=== PATIENT | female | born 1955 | race Caucasian/White ===

== ENCOUNTER → 2021-01-17 13:59 | Outpatient (CLI) | payer MEDICARE, SELFPAY ==
[2021-01-17] MEDS: COVID-19 VACC #1, MRNA(MOD) 100 MCG/0.5 ML VIAL IM (14:05)
== END ==
PROVIDERS: Visit Provider Internal Medicine
DX: Z23 Encounter for immunization (principal)
CPT/HCPCS: 0011A; 91301

== ENCOUNTER 2022-06-21 06:53 | Emergency (ER) | payer MEDICARE, SELFPAY ==
[2022-06-21] VITALS (31 sets, daily range): BP systolic 147–178; BP diastolic 64–88; PULSE 80–100; RESP 16–18; TEMP 36.7; O2SAT 92–99; BMI 34.7
--- NOTE | 2022-06-21 07:21 | ED.GENADULT ---
HPI - General Adult General Chief complaint: Urogenital-Female Stated complaint: cant urinate 3 days Time Seen by Provider: 06/21/22 07:05 Source: patient and family Mode of arrival: Ambulatory History of Present Illness HPI narrative: 67-year-old woman with history complicated by colon cancer with colostomy, kidney cancer with left nephrectomy who presents saying that she has not voided all in the last 2-3 days. She is typically completely incontinent of urine after complications from her colon surgery and has noted that her pad/underwear have not been wet at all. She notes that she has gained about 5 lb in the last few days and is noting some puffiness around her face some mild swelling in her legs but no complaints of chest pain, orthopnea or dyspnea. She has no abdominal pain complaints. She notes that she has not recently had any chest pain, cough, fevers, palpitations. Her colostomy output has been at its baseline. She has not been vomiting. She is not complaining of myalgias or cramping and has no acute neurologic concerns. Related Data Home Medications Medication Instructions Recorded Confirmed escitalopram oxalate 20 mg tablet 20 mg PO DAILY 06/21/22 06/21/22 ezetimibe 10 mg tablet 10 mg PO BEDTIME 06/21/22 06/21/22 fenofibrate nanocrystallized 145 145 mg PO DAILY 06/21/22 06/21/22 mg tablet gabapentin 300 mg capsule 300 mg PO BID 06/21/22 06/21/22 hydrochlorothiazide 50 mg tablet 50 mg PO DAILY 06/21/22 06/21/22 insulin human U-100 NPH-regulr See Rx Instructions .Route .COMPLEX 06/21/22 06/21/22 70-30 mix 100 unit/mL subcutaneous susp (Humulin 70/30 U-100 Insulin) metformin 1,000 mg tablet 1,000 mg PO BID 06/21/22 06/21/22 pravastatin 40 mg tablet 40 mg PO BEDTIME 06/21/22 06/21/22 Allergies Allergy/AdvReac Type Severity Reaction Status Date / Time Opioids - Morphine Analogues AdvReac Hallucinati Verified 06/21/22 07:10 ng Review of Systems Review of Systems Narrative: Remainder of complete review of systems is otherwise unremarkable except for that included in the HPI. Patient History Medical History (Updated 06/21/22 @ 17:33 by Michelle Lofton MD) History of colon cancer History of renal cell cancer Social History Smoking Status: Never smoker Smoking Status: Never smoker alcohol intake frequency: 0-2 drinks per day Substance Use Type: does not use Exam Initial Vital Signs Initial Vital Signs: Vital Signs Temperature 98.0 F 06/21/22 07:00 Pulse Rate 100 H 06/21/22 07:00 Respiratory Rate 17 06/21/22 07:00 Blood Pressure 178/88 H 06/21/22 07:00 Pulse Oximetry 97 06/21/22 07:00 Oxygen Delivery Method 06/21/22 07:00 General: Fatigue but otherwise Healthy appearing, in no acute distress. Able to give a complete and coherent history. Well-nourished well-developed HEENT: Moist mucous membranes, normal sclera with reactive pupils, Neck: No JVD, supple Respiratory: Lungs are clear to auscultation, no wheezing no rales no rhonchi. Full and symmetrical air movement Cardiac: Regular rate and rhythm no murmurs no bruits Abdomen: Soft, nontender, good bowel tones, mild right-sided flank pain Skin: Warm and dry, no rashes Neurologic: Grossly neurologically intact with no obvious asymmetries or abnormalities Extremities: No trauma, well perfused, 1+ bilateral lower extremity edema Psych: Cooperative, appropriate insight and affect Bedside bladder scan shows minimal urine in the bladder Course Orders Ordered: ED Orders 06/21/22 10:22 CT abdomen pelvis wo con Stat Discontinued Medications Sodium Chloride (Normal Saline 0.9%) 1,000 mls @ 1,000 mls/hr IV BOLUS ONE Stop: 06/21/22 11:21 Last Infusion: 06/21/22 14:07 Dose: 0 mls/hr Documented By: Admin: 06/21/22 10:55 Dose: 1,000 mls/hr Documented By: JESSICA Insulin Human Regular (Insulin Regular 100 Unit/Ml 3 Ml Vial) 10 unit SUBCUT NOW ONE Stop: 06/21/22 14:01 Last Admin: 06/21/22 14:26 Dose: 10 unit Documented By: KENNY Co-signed By: AT Vital Signs Vital signs: Vital Signs - 8 hr 06/21/22 10:00 06/21/22 10:01 06/21/22 10:01 Pulse Rate 80 82 Respiratory Rate Blood Pressure 147/65 H Pulse Oximetry 95 97 Oxygen Delivery Method 06/21/22 10:30 06/21/22 10:31 06/21/22 10:31 Pulse Rate 85 90 Respiratory Rate Blood Pressure 161/72 H Pulse Oximetry 97 97 Oxygen Delivery Method 06/21/22 10:59 06/21/22 10:59 06/21/22 11:00 Pulse Rate 83 Respiratory Rate Blood Pressure 165/70 H 148/65 H Pulse Oximetry 98 Oxygen Delivery Method 06/21/22 11:00 06/21/22 11:30 06/21/22 11:31 Pulse Rate 84 84 Respiratory Rate Blood Pressure 155/69 H Pulse Oximetry 98 98 Oxygen Delivery Method Room Air 06/21/22 11:31 06/21/22 12:00 06/21/22 12:01 Pulse Rate 84 85 85 Respiratory Rate Blood Pressure Pulse Oximetry 97 99 99 Oxygen Delivery Method Room Air 06/21/22 12:01 06/21/22 12:30 06/21/22 13:00 Pulse Rate 80 80 Respiratory Rate Blood Pressure 148/64 H Pulse Oximetry 96 96 Oxygen Delivery Method 06/21/22 13:15 06/21/22 13:15 06/21/22 13:30 Pulse Rate 84 83 Respiratory Rate Blood Pressure 169/74 H Pulse Oximetry 98 97 Oxygen Delivery Method 06/21/22 13:50 06/21/22 14:00 06/21/22 14:30 Pulse Rate 82 82 Respiratory Rate 16 Blood Pressure Pulse Oximetry 97 98 Oxygen Delivery Method 06/21/22 15:00 06/21/22 15:14 06/21/22 15:14 Pulse Rate 80 85 Respiratory Rate Blood Pressure 163/71 H Pulse Oximetry 98 99 Oxygen Delivery Method 06/21/22 15:30 06/21/22 16:00 06/21/22 16:30 Pulse Rate 84 81 81 Respiratory Rate 16 Blood Pressure Pulse Oximetry 98 98 98 Oxygen Delivery Method Room Air Room Air Medical Decision Making Lab Data Result diagrams: 06/21/22 08:08 06/21/22 08:08 Labs: Lab Results 06/21/22 06/21/22 06/21/22 Range/Units 08:08 08:08 08:08 WBC 9.0 (4.5-11.0) X10^3/uL RBC 3.85 L (4.0-5.2) X10^6/uL Hgb 11.1 L (12.0-16.0) g/dL Hct 32.9 L (36-46) % MCV 85.4 (80-100) fL MCH 28.9 (26-34) PG MCHC 33.8 (30-36) % RDW 14.5 (11.6-14.8) % Plt Count 323 (150-400) X10^3/uL Neut % (Auto) 70.9 (50-75) % Lymph % (Auto) 15.9 L (25-40) % [place] % (Auto) 10.0 (3-14) % Eos % (Auto) 2.4 (2-4) % Baso % (Auto) 0.8 (0-2) % Neut # (Auto) 6400 (9636-6353) /uL Lymph # (Auto) 1400 (3388-2771) /uL [place] # (Auto) 900 (0-900) /uL Eos # (Auto) 200 (0-450) /uL Baso # (Auto) 100 (0-100) /uL Sodium 128 L (137-145) mmol/L Potassium 4.3 (3.4-5.1) mmol/L Chloride 95 L (98-107) mmol/L Carbon Dioxide 22 (22-32) mmol/L BUN 62 H (7-17) mg/dL Creatinine 5.80 H (0.52-1.04) mg/dL Estimated GFR 8 L (>60) mL/min BUN/Creatinine Ratio 10.7 (6-22) Glucose 309 H (80-110) mg/dL Lactate (0.7-2.1) mmol/L Calcium 11.1 H (8.4-10.2) mg/dL Magnesium 2.0 (1.6-2.3) mg/dL Total Bilirubin 0.4 (0.2-1.3) mg/dL AST 21 (14-36) IU/L ALT 16 (<35) IU/L Alkaline Phosphatase 50 (38-126) U/L Troponin I 0.024 (0.01-0.034) ng/mL Total Protein 6.7 (6.3-8.2) g/dL Albumin 3.7 (3.5-5.0) g/dL Globulin 3.0 (1.7-4.1) g/dL Albumin/Globulin Ratio 1.2 (1.0-2.8) Procalcitonin 0.75 H (<0.5) ng/mL SARS-CoV-2 (PCR) (Negative) 06/21/22 06/21/22 06/21/22 Range/Units 08:08 08:20 11:45 WBC (4.5-11.0) X10^3/uL RBC (4.0-5.2) X10^6/uL Hgb (12.0-16.0) g/dL Hct (36-46) % MCV (80-100) fL MCH (26-34) PG MCHC (30-36) % RDW (11.6-14.8) % Plt Count (150-400) X10^3/uL Neut % (Auto) (50-75) % Lymph % (Auto) (25-40) % [place] % (Auto) (3-14) % Eos % (Auto) (2-4) % Baso % (Auto) (0-2) % Neut # (Auto) (4670-8321) /uL Lymph # (Auto) (8091-2571) /uL [place] # (Auto) (0-900) /uL Eos # (Auto) (0-450) /uL Baso # (Auto) (0-100) /uL Sodium (137-145) mmol/L Potassium (3.4-5.1) mmol/L Chloride (98-107) mmol/L Carbon Dioxide (22-32) mmol/L BUN (7-17) mg/dL Creatinine (0.52-1.04) mg/dL Estimated GFR (>60) mL/min BUN/Creatinine Ratio (6-22) Glucose (80-110) mg/dL Lactate 2.5 H 2.3 H (0.7-2.1) mmol/L Calcium (8.4-10.2) mg/dL Magnesium (1.6-2.3) mg/dL Total Bilirubin (0.2-1.3) mg/dL AST (14-36) IU/L ALT (<35) IU/L Alkaline Phosphatase (38-126) U/L Troponin I (0.01-0.034) ng/mL Total Protein (6.3-8.2) g/dL Albumin (3.5-5.0) g/dL Globulin (1.7-4.1) g/dL Albumin/Globulin Ratio (1.0-2.8) Procalcitonin (<0.5) ng/mL SARS-CoV-2 (PCR) Negative (Negative) Point of Care Testing Glucose POC 362 Point of care testing: Point of Care Testing Glucose POC 362 Imaging Data Chest x-ray: Radiologist's Impression: FINDINGS:? ? Surgical changes and devices:? None.? ? Lungs and pleura:? Lungs are clear.? No pleural effusions or pneumothorax.? ? Mediastinum:? Mediastinal contours appear normal.? Heart size is normal.? ? Bones and chest wall:? No suspicious bony lesions.? Overlying soft tissues appear unremarkable.? ? IMPRESSION:? No acute cardiopulmonary abnormality. ? ? ? Dictated by: Deon Pascal M.D. on 06/21/2022 at 8:11 ? ? ECG Data Interpretation: Normal sinus rhythm Normal intervals, normal axis No widened QRS or peaked T-waves No acute ischemic changes MDM Narrative Medical decision making narrative: 67-year-old woman with known stage IIIB chronic kidney disease and no urine output for the last 2-3 days. Acute renal failure with a creatinine of 5.8 potassium of 4.3 chloride of 95 carbon dioxide 22 BUN of 62. Calcium is slightly elevated at 11.1. She does not have signs or symptoms of infection, hypotension or sepsis. Bladder scan indicates an empty bladder, Chiang catheter is placed and no urine has returned at all. 1L NS is given. CT scan of the abdomen without contrast is done with no acute extrinsic obstructive findings, stones or hydronephrosis of her solitary right kidney. 4pm Discussed with [facility]. Discussed with Nephrology, Dr Valdez . Will admit to hospitalist service. Dr Mitchell. Discharge Plan Departure Patient Disposition: [facility] Clinical Impression: Acute renal failure, Acquired solitary kidney Prescriptions: No Action pravastatin 40 mg tablet 40 mg PO BEDTIME hydrochlorothiazide 50 mg tablet 50 mg PO DAILY Humulin 70/30 U-100 Insulin 100 unit/mL (70-30) suspension See Rx Instructions .ROUTE .COMPLEX Rx Instructions: 118 units in the morning, 132 units at nightime metformin 1,000 mg tablet 1,000 mg PO BID gabapentin 300 mg capsule 300 mg PO BID escitalopram oxalate 20 mg tablet 20 mg PO DAILY ezetimibe 10 mg tablet 10 mg PO BEDTIME fenofibrate nanocrystallized 145 mg tablet 145 mg PO DAILY
--- NOTE | 2022-06-21 07:33 | DI.RAD.S_ITS ---
PROCEDURE: XR CHEST 1V INDICATIONS: new acute renal failure TECHNIQUE: One view of the chest was acquired. COMPARISON: None. FINDINGS: Surgical changes and devices: None. Lungs and pleura: Lungs are clear. No pleural effusions or pneumothorax. Mediastinum: Mediastinal contours appear normal. Heart size is normal. Bones and chest wall: No suspicious bony lesions. Overlying soft tissues appear unremarkable. IMPRESSION: No acute cardiopulmonary abnormality. Dictated by: Deon Pascal M.D. on 06/21/2022 at 8:11 Approved by: Deon Pascal M.D. on 06/21/2022 at 8:12
[2022-06-21 08:17] LABS: Add Manual Diff / Slide Review NO; Basophils Absolute Auto 100 /uL (0-100); Basophils Percent Auto 0.8 % (0-2); Eosinophils Absolute Auto 200 /uL (0-450); Eosinophils Percent Auto 2.4 % (2-4); Hematocrit 32.9 % (36-46); Hemoglobin 11.1 g/dL (12.0-16.0); Lymphocytes Absolute Auto 1400 /uL (1100-4500); Lymphocytes Percent Auto 15.9 % (25-40); Mean Corpuscular HGB Conc 33.8 % (30-36); Mean Corpuscular Hemoglobin 28.9 PG (26-34); Mean Corpuscular Volume 85.4 fL (80-100); Monocytes Absolute Auto 900 /uL (0-900); Neutrophils Absolute Auto 6400 /uL (1500-7000); Neutrophils Percent Auto 70.9 % (50-75); Platelet Count 323 X10^3/uL (150-400); Red Blood Cell Count 3.85 X10^6/uL (4.0-5.2); Red Cell Distribution Width 14.5 % (11.6-14.8)
[2022-06-21 08:27] LABS: Lactate (Lactic Acid) 2.5 mmol/L (0.7-2.1)
[2022-06-21 08:37] LABS: COVID19 -Nasal RAPID Negative (Negative)
[2022-06-21 08:38] LABS: Troponin I 0.024 ng/mL (0.01-0.034)
[2022-06-21 08:42] LABS: Procalcitonin 0.75 ng/mL (<0.5)
--- NOTE | 2022-06-21 08:43 | PC.NURSE ---
no urine output from sullivan cath insertion. Dr. Lofton aware.
[2022-06-21 09:16] LABS: Alanine Aminotransferase 16 IU/L (<35); Albumin 3.7 g/dL (3.5-5.0); Albumin Globulin Ratio 1.2 (1.0-2.8); Alkaline Phosphatase 50 U/L (38-126); Aspartate Aminotransferase 21 IU/L (14-36); BUN Creatinine Ratio 10.7 (6-22); Bilirubin Total 0.4 mg/dL (0.2-1.3); Blood Urea Nitrogen 62 mg/dL (7-17); Calcium 11.1 mg/dL (8.4-10.2); Carbon Dioxide 22 mmol/L (22-32); Chloride 95 mmol/L (98-107); Estimated Glomerular Filt Rate 8 mL/min (>60); Glucose 309 mg/dL (80-110); HEMOLYSIS < 15 (0-50); Potassium 4.3 mmol/L (3.4-5.1); Sodium 128 mmol/L (137-145); Total Protein 6.7 g/dL (6.3-8.2)
[2022-06-21 10:13] LABS: Reflexed Lactate in 2 Hours Y
--- NOTE | 2022-06-21 10:22 | DI.CT.S_ITS ---
PROCEDURE: CT ABDOMEN PELVIS WO CON INDICATIONS: h/o colon ca, renal ca(L nephrectomy), new Acute renal failu TECHNIQUE: Noncontrast 5 mm thick sections acquired from the diaphragms to the symphysis. 5 mm coronal and sagittal reformats were then performed. For radiation dose reduction, the following was used: automated exposure control, adjustment of mA and/or kV according to patient size. COMPARISON: [facility], CR, XR CHEST 1V, 06/21/2022, 7:48. FINDINGS: Image quality: Excellent. ABDOMEN: Lung bases: Lung bases are clear. Heart size is normal. Solid organs: Liver is normal in size. Gallbladder has been removed. Pancreas is normal in contours. Spleen is normal in size. No adrenal nodules. The left kidney has been removed. The right kidney demonstrates apparent water density cysts. No right-sided hydronephrosis is seen. No right-sided kidney stones. Peritoneum and bowel: A lap band can be seen. There is a left lower quadrant colostomy. Unenhanced bowel loops demonstrate normal wall thickness and caliber. No free fluid or air. Nodes and vessels: No retroperitoneal or mesenteric adenopathy by size criteria. Aorta and inferior vena cava are normal in caliber. Atherosclerotic calcification is noted. Miscellaneous: Moderate to prominent inflammatory change can be seen involving the anterior aspect of the anterior abdominal wall. A mild periumbilical hernia is seen, containing fat. PELVIS: Genitourinary: A Chiang catheter is seen, which decompresses the bladder. No adnexal masses are seen. Miscellaneous: No inguinal hernias or adenopathy. Bones: No suspicious bony lesions. No vertebral body compression fractures. This patient has transitional lumbar anatomy. For the purposes of this examination, the level with the last pair of ribs is considered to be T12. By this numbering scheme, the L5 level is transitional and is highly sacralized. Focal L4-L5 degenerative change is seen. IMPRESSION: A cause of acute renal failure is not identified. No right-sided hydronephrosis is seen. Inflammatory change can be seen involving the anterior abdominal wall. Incidental note is made of: Cholecystectomy Lap band Status post left nephrectomy Right renal cysts are seen. Fat containing periumbilical hernia Left lower quadrant colostomy Chiang catheter Focal L4-L5 degenerative change Transitional lumbar anatomy, with a highly sacralized L5 level Dictated by: Nazario Abraham M.D. on 06/21/2022 at 9:51 Approved by: Nazario Abraham M.D. on 06/21/2022 at 9:56
[2022-06-21] MEDS: SODIUM CHLORIDE 0.9% 1,000 ML 1000 ML IV (10:55)
[2022-06-21 12:15] LABS: Lactate 2HR (Lactic Acid Rflx) 2.3 mmol/L (0.7-2.1)
[2022-06-21] MEDS: INSULIN REGULAR 100 UNIT/ML 3 ML VIAL 10 UNIT SUBCUT (14:26)
--- NOTE | 2022-06-21 18:14 | PC.NURSE ---
Report called to Joel PATEL for RM 267 at [facility].
== END 2022-06-21 18:00 | disposition short-term general hospital (02) ==
PROVIDERS: Emergency Provider Emergency Medicine
DX: N17.9 Acute kidney failure, unspecified (principal); R60.9 Edema, unspecified; Z20.822 Contact with and (suspected) exposure to COVID-19; Z20.5 Contact with and (suspected) exposure to viral hepatitis
CPT/HCPCS: 36415; 71045; 74176; 80053; 82962; 83605; 83735; 84145; 84484; 85025; 87635; 93005; 96360; 96361; 96372; 99284; C9803

== ENCOUNTER → 2022-07-14 11:10 | Outpatient (CLI) | payer MEDICARE, SELFPAY ==
[2022-07-14 12:01] LABS: Add Manual Diff / Slide Review NO; Basophils Absolute Auto 100 /uL (0-100); Basophils Percent Auto 1.2 % (0-2); Eosinophils Absolute Auto 200 /uL (0-450); Eosinophils Percent Auto 3.7 % (2-4); Hematocrit 34.9 % (36-46); Hemoglobin 11.4 g/dL (12.0-16.0); Lymphocytes Absolute Auto 1200 /uL (1100-4500); Lymphocytes Percent Auto 17.7 % (25-40); Mean Corpuscular HGB Conc 32.7 % (30-36); Mean Corpuscular Hemoglobin 28.8 PG (26-34); Mean Corpuscular Volume 87.9 fL (80-100); Monocytes Absolute Auto 600 /uL (0-900); Monocytes Percent Auto 8.3 % (3-14); Neutrophils Absolute Auto 4700 /uL (1500-7000); Neutrophils Percent Auto 69.1 % (50-75); Platelet Count 368 X10^3/uL (150-400); Red Blood Cell Count 3.97 X10^6/uL (4.0-5.2); Red Cell Distribution Width 14.6 % (11.6-14.8); White Blood Cell Count 6.7 X10^3/uL (4.5-11.0)
[2022-07-14 12:46] LABS: Alanine Aminotransferase 22 IU/L (<35); Albumin 3.8 g/dL (3.5-5.0); Albumin Globulin Ratio 1.3 (1.0-2.8); Alkaline Phosphatase 74 U/L (38-126); Aspartate Aminotransferase 21 IU/L (14-36); BUN Creatinine Ratio 15.3 (6-22); Bilirubin Total 0.4 mg/dL (0.2-1.3); Blood Urea Nitrogen 25 mg/dL (7-17); Calcium 9.8 mg/dL (8.4-10.2); Carbon Dioxide 29 mmol/L (22-32); Chloride 107 mmol/L (98-107); Estimated Glomerular Filt Rate 35 mL/min (>60); Globulin 2.9 g/dL (1.7-4.1); Glucose 296 mg/dL (80-110); HEMOLYSIS < 15 (0-50); Potassium 4.7 mmol/L (3.4-5.1); Sodium 140 mmol/L (137-145); Total Protein 6.7 g/dL (6.3-8.2)
== END ==
PROVIDERS: PCP Internal Medicine; Referring Provider Specialist; Visit Provider Specialist
DX: N18.31 Chronic kidney disease, stage 3a (principal)
CPT/HCPCS: 36415; 80053; 85025

== ENCOUNTER → 2022-07-21 10:51 | Outpatient (CLI) | payer MEDICARE, SELFPAY ==
[2022-07-21 12:01] LABS: Add Manual Diff / Slide Review NO; Basophils Absolute Auto 100 /uL (0-100); Basophils Percent Auto 1.3 % (0-2); Eosinophils Absolute Auto 200 /uL (0-450); Eosinophils Percent Auto 3.5 % (2-4); Hematocrit 34.6 % (36-46); Hemoglobin 11.7 g/dL (12.0-16.0); Lymphocytes Absolute Auto 1700 /uL (1100-4500); Lymphocytes Percent Auto 25.8 % (25-40); Mean Corpuscular HGB Conc 33.9 % (30-36); Mean Corpuscular Hemoglobin 29.6 PG (26-34); Mean Corpuscular Volume 87.4 fL (80-100); Monocytes Absolute Auto 600 /uL (0-900); Monocytes Percent Auto 9.9 % (3-14); Neutrophils Absolute Auto 3900 /uL (1500-7000); Neutrophils Percent Auto 59.5 % (50-75); Platelet Count 363 X10^3/uL (150-400); Red Blood Cell Count 3.96 X10^6/uL (4.0-5.2); Red Cell Distribution Width 14.7 % (11.6-14.8); White Blood Cell Count 6.6 X10^3/uL (4.5-11.0)
[2022-07-21 12:44] LABS: Alanine Aminotransferase 26 IU/L (<35); Albumin 3.7 g/dL (3.5-5.0); Albumin Globulin Ratio 1.3 (1.0-2.8); Alkaline Phosphatase 78 U/L (38-126); Aspartate Aminotransferase 29 IU/L (14-36); BUN Creatinine Ratio 15.1 (6-22); Bilirubin Total 0.3 mg/dL (0.2-1.3); Blood Urea Nitrogen 19 mg/dL (7-17); Calcium 9.3 mg/dL (8.4-10.2); Carbon Dioxide 24 mmol/L (22-32); Chloride 104 mmol/L (98-107); Estimated Glomerular Filt Rate 47 mL/min (>60); Globulin 2.8 g/dL (1.7-4.1); Glucose 253 mg/dL (80-110); HEMOLYSIS < 15 (0-50); Phosphorous 3.9 mg/dL (2.8-4.1); Potassium 4.6 mmol/L (3.4-5.1); Sodium 139 mmol/L (137-145); Total Protein 6.5 g/dL (6.3-8.2)
[2022-07-21 13:16] LABS: Appearance Urine UA CLEAR; Bilirubin Urine UA NEGATIVE (NEGATIVE); Color Urine UA YELLOW; Glucose Urine UA 1+ g/dL (Negative); Ketones Urine UA NEGATIVE (NEGATIVE); Leukocyte Esterase Urine UA NEGATIVE (NEGATIVE); Nitrite Urine UA POSITIVE (Negative); Occult Blood Urine UA NEGATIVE (Negative); Protein Urine UA NEGATIVE (Negative); Specific Gravity Urine UA 1.015 (1.000-1.035); Urobilinogen Urine UA 0.2 E.U./dL (0.2)
[2022-07-21 13:20] LABS: pH Urine UA 5.5 (4.5-8.0)
[2022-07-21 13:22] LABS: RBC Urine None Seen (0-5/HPF); Squamous Epithelial Cell Urine 1-5 /HPF (0-5/HPF); WBC Urine 1-5/HPF (0-5/HPF)
[2022-07-21 13:23] LABS: Bacteria Urine Many (>30); Culture Indicated Urine Specimen Cultured
== END ==
PROVIDERS: PCP Internal Medicine; Referring Provider Specialist; Visit Provider Specialist
DX: N17.9 Acute kidney failure, unspecified (principal); N18.32 Chronic kidney disease, stage 3b
CPT/HCPCS: 80053; 81001; 84100; 85025; 87077; 87086; 87186

== ENCOUNTER → 2022-07-28 10:46 | Outpatient (CLI) | payer MEDICARE, SELFPAY ==
[2022-07-28 12:19] LABS: Appearance Urine UA SL CLOUDY; Bilirubin Urine UA NEGATIVE (NEGATIVE); Color Urine UA YELLOW; Glucose Urine UA 2+ g/dL (Negative); Ketones Urine UA NEGATIVE (NEGATIVE); Leukocyte Esterase Urine UA 1+ (NEGATIVE); Nitrite Urine UA NEGATIVE (Negative); Occult Blood Urine UA NEGATIVE (Negative); Protein Urine UA NEGATIVE (Negative); Specific Gravity Urine UA 1.015 (1.000-1.035); Urobilinogen Urine UA 0.2 E.U./dL (0.2)
[2022-07-28 12:21] LABS: Add Manual Diff / Slide Review NO; Basophils Absolute Auto 100 /uL (0-100); Basophils Percent Auto 0.9 % (0-2); Eosinophils Absolute Auto 300 /uL (0-450); Eosinophils Percent Auto 3.8 % (2-4); Hematocrit 35.6 % (36-46); Hemoglobin 11.8 g/dL (12.0-16.0); Lymphocytes Absolute Auto 1700 /uL (1100-4500); Lymphocytes Percent Auto 22.8 % (25-40); Mean Corpuscular HGB Conc 33.1 % (30-36); Mean Corpuscular Hemoglobin 28.7 PG (26-34); Mean Corpuscular Volume 86.7 fL (80-100); Monocytes Absolute Auto 600 /uL (0-900); Monocytes Percent Auto 8.6 % (3-14); Neutrophils Absolute Auto 4800 /uL (1500-7000); Neutrophils Percent Auto 63.9 % (50-75); Platelet Count 283 X10^3/uL (150-400); White Blood Cell Count 7.5 X10^3/uL (4.5-11.0)
[2022-07-28 12:40] LABS: Bacteria Urine Many (>30); Culture Indicated Urine Specimen Cultured; RBC Urine None Seen (0-5/HPF); WBC Urine 10-30/HPF (0-5/HPF)
[2022-07-28 13:12] LABS: Alanine Aminotransferase 26 IU/L (<35); Albumin 3.9 g/dL (3.5-5.0); Albumin Globulin Ratio 1.2 (1.0-2.8); Alkaline Phosphatase 90 U/L (38-126); Aspartate Aminotransferase 23 IU/L (14-36); BUN Creatinine Ratio 13.8 (6-22); Bilirubin Total 0.3 mg/dL (0.2-1.3); Blood Urea Nitrogen 18 mg/dL (7-17); Calcium 9.6 mg/dL (8.4-10.2); Carbon Dioxide 22 mmol/L (22-32); Chloride 106 mmol/L (98-107); Estimated Glomerular Filt Rate 45 mL/min (>60); Globulin 3.2 g/dL (1.7-4.1); Glucose 209 mg/dL (80-110); HEMOLYSIS < 15 (0-50); Phosphorous 3.2 mg/dL (2.8-4.1); Potassium 3.8 mmol/L (3.4-5.1); Sodium 137 mmol/L (137-145); Total Protein 7.1 g/dL (6.3-8.2)
== END ==
PROVIDERS: PCP Internal Medicine; Referring Provider Specialist; Visit Provider Specialist
DX: N17.9 Acute kidney failure, unspecified (principal); N18.32 Chronic kidney disease, stage 3b
CPT/HCPCS: 36415; 80053; 81001; 84100; 85025; 87086; 87186

== ENCOUNTER → 2022-08-04 10:36 | Outpatient (CLI) | payer MEDICARE, SELFPAY ==
[2022-08-04 12:35] LABS: Add Manual Diff / Slide Review NO; Basophils Absolute Auto 100 /uL (0-100); Basophils Percent Auto 1.4 % (0-2); Eosinophils Absolute Auto 200 /uL (0-450); Eosinophils Percent Auto 2.7 % (2-4); Hematocrit 37.3 % (36-46); Hemoglobin 12.3 g/dL (12.0-16.0); Lymphocytes Absolute Auto 2000 /uL (1100-4500); Lymphocytes Percent Auto 22.6 % (25-40); Mean Corpuscular HGB Conc 33.1 % (30-36); Mean Corpuscular Hemoglobin 28.7 PG (26-34); Mean Corpuscular Volume 86.7 fL (80-100); Monocytes Absolute Auto 700 /uL (0-900); Monocytes Percent Auto 7.9 % (3-14); Neutrophils Absolute Auto 5800 /uL (1500-7000); Neutrophils Percent Auto 65.4 % (50-75); Platelet Count 333 X10^3/uL (150-400); Red Cell Distribution Width 14.7 % (11.6-14.8); White Blood Cell Count 8.9 X10^3/uL (4.5-11.0)
[2022-08-04 12:59] LABS: Appearance Urine UA CLEAR; Bilirubin Urine UA NEGATIVE (NEGATIVE); Color Urine UA YELLOW; Glucose Urine UA 2+ g/dL (Negative); Ketones Urine UA NEGATIVE (NEGATIVE); Leukocyte Esterase Urine UA NEGATIVE (NEGATIVE); Nitrite Urine UA NEGATIVE (Negative); Occult Blood Urine UA TRACE-INTACT (Negative); Protein Urine UA NEGATIVE (Negative); Specific Gravity Urine UA 1.015 (1.000-1.035); Urobilinogen Urine UA 0.2 E.U./dL (0.2)
[2022-08-04 13:00] LABS: pH Urine UA 5.5 (4.5-8.0)
[2022-08-04 13:04] LABS: Bacteria Urine None Seen; Culture Indicated Urine Cult Not Indicated; RBC Urine 1-5/HPF (0-5/HPF); WBC Urine None Seen (0-5/HPF)
[2022-08-04 13:58] LABS: Alanine Aminotransferase 29 IU/L (<35); Albumin 4.1 g/dL (3.5-5.0); Albumin Globulin Ratio 1.4 (1.0-2.8); Alkaline Phosphatase 82 U/L (38-126); Aspartate Aminotransferase 31 IU/L (14-36); BUN Creatinine Ratio 17.4 (6-22); Bilirubin Total 0.3 mg/dL (0.2-1.3); Blood Urea Nitrogen 20 mg/dL (7-17); Calcium 9.7 mg/dL (8.4-10.2); Carbon Dioxide 23 mmol/L (22-32); Chloride 102 mmol/L (98-107); Estimated Glomerular Filt Rate 53 mL/min (>60); Glucose 196 mg/dL (80-110); HEMOLYSIS < 15 (0-50); Phosphorous 3.4 mg/dL (2.8-4.1); Potassium 4.3 mmol/L (3.4-5.1); Sodium 139 mmol/L (137-145); Total Protein 7.1 g/dL (6.3-8.2)
== END ==
PROVIDERS: PCP Internal Medicine; Referring Provider Specialist; Visit Provider Specialist
DX: N18.31 Chronic kidney disease, stage 3a (principal); N17.9 Acute kidney failure, unspecified; N18.32 Chronic kidney disease, stage 3b
CPT/HCPCS: 36415; 80053; 81001; 84100; 85025

== ENCOUNTER → 2022-08-18 08:42 | Outpatient (CLI) | payer MEDICARE, SELFPAY ==
[2022-08-18 09:27] LABS: Add Manual Diff / Slide Review NO; Basophils Absolute Auto 100 /uL (0-100); Basophils Percent Auto 0.7 % (0-2); Eosinophils Absolute Auto 300 /uL (0-450); Eosinophils Percent Auto 3.5 % (2-4); Hematocrit 38.7 % (36-46); Hemoglobin 13.1 g/dL (12.0-16.0); Lymphocytes Absolute Auto 2000 /uL (1100-4500); Mean Corpuscular HGB Conc 33.9 % (30-36); Mean Corpuscular Hemoglobin 29.4 PG (26-34); Mean Corpuscular Volume 86.5 fL (80-100); Monocytes Absolute Auto 700 /uL (0-900); Monocytes Percent Auto 8.3 % (3-14); Neutrophils Absolute Auto 5300 /uL (1500-7000); Neutrophils Percent Auto 63.5 % (50-75); Platelet Count 326 X10^3/uL (150-400); Red Blood Cell Count 4.47 X10^6/uL (4.0-5.2); Red Cell Distribution Width 14.3 % (11.6-14.8); White Blood Cell Count 8.3 X10^3/uL (4.5-11.0)
[2022-08-18 09:29] LABS: Appearance Urine UA CLEAR; Bilirubin Urine UA NEGATIVE (NEGATIVE); Glucose Urine UA NEGATIVE (Negative); Ketones Urine UA NEGATIVE (NEGATIVE); Leukocyte Esterase Urine UA TRACE (NEGATIVE); Nitrite Urine UA NEGATIVE (Negative); Occult Blood Urine UA NEGATIVE (Negative); Protein Urine UA NEGATIVE (Negative); Specific Gravity Urine UA <=1.005 (1.000-1.035); Urobilinogen Urine UA 0.2 E.U./dL (0.2)
[2022-08-18 09:43] LABS: pH Urine UA 5.5 (4.5-8.0)
[2022-08-18 09:44] LABS: Bacteria Urine Moderate (10-30); Color Urine UA Straw; Culture Indicated Urine Specimen Cultured; RBC Urine None Seen (0-5/HPF); Squamous Epithelial Cell Urine 0-1 /HPF (0-5/HPF); WBC Urine 0-1/HPF (0-5/HPF)
[2022-08-18 10:10] LABS: Alanine Aminotransferase 30 IU/L (<35); Albumin Globulin Ratio 1.2 (1.0-2.8); Alkaline Phosphatase 93 U/L (38-126); Aspartate Aminotransferase 31 IU/L (14-36); BUN Creatinine Ratio 20.4 (6-22); Bilirubin Total 0.4 mg/dL (0.2-1.3); Blood Urea Nitrogen 22 mg/dL (7-17); Calcium 9.5 mg/dL (8.4-10.2); Carbon Dioxide 19 mmol/L (22-32); Chloride 105 mmol/L (98-107); Estimated Glomerular Filt Rate 57 mL/min (>60); Globulin 3.4 g/dL (1.7-4.1); Glucose 257 mg/dL (80-110); HEMOLYSIS 22 (0-50); Phosphorous 3.6 mg/dL (2.8-4.1); Sodium 137 mmol/L (137-145); Total Protein 7.4 g/dL (6.3-8.2)
== END ==
PROVIDERS: PCP Internal Medicine; Referring Provider Specialist; Visit Provider Specialist
DX: N17.9 Acute kidney failure, unspecified (principal); N18.32 Chronic kidney disease, stage 3b
CPT/HCPCS: 36415; 80053; 81001; 84100; 85025; 87086

== ENCOUNTER → 2023-01-29 09:03 | Outpatient (CLI) | payer MEDICARE, SELFPAY ==
[2023-01-29 10:28] LABS: Add Manual Diff / Slide Review NO; Basophils Absolute Auto 100 /uL (0-100); Basophils Percent Auto 0.8 % (0-2); Eosinophils Absolute Auto 200 /uL (0-450); Eosinophils Percent Auto 3.2 % (2-4); Hematocrit 38.6 % (36-46); Hemoglobin 13.2 g/dL (12.0-16.0); Lymphocytes Absolute Auto 1800 /uL (1100-4500); Lymphocytes Percent Auto 24.1 % (25-40); Mean Corpuscular HGB Conc 34.1 % (30-36); Mean Corpuscular Hemoglobin 29.2 PG (26-34); Mean Corpuscular Volume 85.6 fL (80-100); Monocytes Absolute Auto 600 /uL (0-900); Monocytes Percent Auto 7.9 % (3-14); Neutrophils Absolute Auto 4700 /uL (1500-7000); Platelet Count 241 X10^3/uL (150-400); Red Blood Cell Count 4.51 X10^6/uL (4.0-5.2); Red Cell Distribution Width 14.8 % (11.6-14.8); White Blood Cell Count 7.3 X10^3/uL (4.5-11.0)
[2023-01-29 10:38] LABS: Alanine Aminotransferase 28 IU/L (<35); Albumin 3.7 g/dL (3.5-5.0); Albumin Globulin Ratio 1.2 (1.0-2.8); Alkaline Phosphatase 80 U/L (38-126); Aspartate Aminotransferase 25 IU/L (14-36); BUN Creatinine Ratio 18.1 (6-22); Bilirubin Total 0.4 mg/dL (0.2-1.3); Blood Urea Nitrogen 17 mg/dL (7-17); Carbon Dioxide 24 mmol/L (22-32); Chloride 103 mmol/L (98-107); Cholesterol 188 mg/dL (140-199); Estimated Glomerular Filt Rate > 60 mL/min (>60); Globulin 3.1 g/dL (1.7-4.1); Glucose 207 mg/dL (80-110); HDL Cholesterol 41 mg/dL (40-60); HEMOLYSIS < 15 (0-50); LDL Cholesterol Calculated 88 mg/dL (<100); Potassium 3.9 mmol/L (3.4-5.1); Sodium 136 mmol/L (137-145); Total Protein 6.8 g/dL (6.3-8.2); Triglycerides 297 mg/dL (35-150)
[2023-01-29 11:21] LABS: TSH w/ Reflex to FT4 0.13 uIU/mL (0.47-4.68)
[2023-01-30 05:14] LABS: x Labcorp Estim. Avg Glu (eAG) 243 mg/dL (.); x Labcorp Hemoglobin A1c 10.1 % (4.8-5.6)
== END ==
PROVIDERS: PCP Internal Medicine; Referring Provider Internal Medicine; Visit Provider Internal Medicine
DX: E11.22 Type 2 diabetes mellitus with diabetic chronic kidney disease (principal); N18.32 Chronic kidney disease, stage 3b; Z79.4 Long term (current) use of insulin; E11.59 Type 2 diabetes mellitus with other circulatory complications; I15.2 Hypertension secondary to endocrine disorders; E11.69 Type 2 diabetes mellitus with other specified complication; E78.5 Hyperlipidemia, unspecified
CPT/HCPCS: 36415; 80053; 80061; 83036; 84439; 84443; 85025

== ENCOUNTER 2025-05-04 14:01 | Inpatient (IN) | payer MEDICARE, SELFPAY ==
[2025-05-04 14:02] VITALS: BP 148/96; PULSE 98; RESP 14; TEMP 36.7; O2SAT 98; BMI 37.2
--- NOTE | 2025-05-04 14:08 | ED.GENADULT ---
HPI - General Adult General Chief complaint: Wound/Laceration Stated complaint: cellulitis sent by dr in pain Time Seen by Provider: 05/04/25 14:07 History of Present Illness HPI narrative: 70-year-old female history of colon cancer with a colostomy, kidney cancer with left nephrectomy, recently being treated for cellulitis failed outpatient therapy with doxycycline growing Gram-negative rods with no improvement today sent over from PCP office for further evaluation treatment. Patient reports drainage foul-smelling odor but denies fever, chills, bodyaches, cough, runny nose, sore throat, nausea, vomiting, diarrhea. She is also diabetic and her sugars have been running in the 300. Other than what is stated 14 point review of system is negative. Related Data Home Medications ?Medication ?Instructions ?Recorded ?Confirmed escitalopram oxalate 20 mg tablet 20 mg PO DAILY 06/21/22 05/04/25 pravastatin 40 mg tablet 40 mg PO BEDTIME 06/21/22 05/04/25 buspirone 10 mg tablet 10 mg PO BID 02/21/25 05/04/25 gabapentin 300 mg capsule 300 mg PO DAILY 02/21/25 05/04/25 losartan 25 mg tablet 25 mg PO DAILY 02/21/25 05/04/25 Held on 05/04/25. Instructions: STOPPED FOR ANTIBIOTIC, BP WAS LOW pioglitazone 45 mg tablet 45 mg PO DAILY 02/21/25 05/04/25 Humulin R U-500 See Rx Instructions .Route .COMPLEX 05/04/25 05/04/25 Previous Rx's ?Medication ?Instructions ?Recorded doxycycline hyclate 100 mg capsule 100 mg PO BID #20 caps 02/21/25 Allergies Allergy/AdvReac Type Severity Reaction Status Date / Time Opioids - Morphine Analogues AdvReac Hallucinati Verified 05/04/25 14:08 ng Review of Systems Review of Systems ROS Unobtainable: All systems reviewed & are unremarkable except as noted in HPI and below Patient History Medical History (Updated 05/04/25 @ 15:51 by Sebastien Weber DO) History of renal cell cancer History of colon cancer Social History household members: spouse Smoking Status: Never smoker alcohol intake: never alcohol intake frequency: 0-2 drinks per day Exam Narrative Exam Narrative: GENERAL: [70] year old patient appears stated age. Well-developed patient, in mild distress. HEAD: Atraumatic. Normocephalic. EYES: Pupils equal round and reactive. Extraocular motions intact. No scleral icterus. No injection or drainage. ENT: Nose without bleeding, purulent drainage. Throat without erythema, tonsillar hypertrophy or exudate. Airway patent. NECK: Trachea midline. Non tender CARDIOVASCULAR: Regular rate and rhythm without murmurs, gallops, or rubs. RESPIRATORY: Clear to auscultation. Breath sounds equal bilaterally. No wheezes, rales, or rhonchi. GASTROINTESTINAL: Abdomen soft, non-tender, nondistended. EXTREMITIES: No edema or joint tenderness. BACK: Nontender without deformity or crepitance. No flank tenderness. NEURO: AOx3. SKIN: Midsternal chest region anteriorly 3 x 3 cm soft tissue redness swelling tenderness to palpation no fluctuance at this time. Initial Vital Signs Initial Vital Signs: Vital Signs Temperature 98.1 F 05/04/25 14:02 Pulse Rate 98 H 05/04/25 14:02 Respiratory Rate 14 05/04/25 14:02 Blood Pressure 148/96 H 05/04/25 14:02 Pulse Oximetry 98 05/04/25 14:02 Oxygen Delivery Method Room Air 05/04/25 14:02 Course Orders Ordered: Acetaminophen (Acetaminophen 325 Mg Tablet) 650 mg PO Q6H PRN PRN Reason: Fever/Mild Pain (1-3) Last Admin: 05/04/25 18:18 Dose: 650 mg Documented By: MALCOLM Hydrocodone Bitart/Acetaminophen (Hydrocodone/Acet 5/325 Tablet) 1 tab PO Q4H PRN PRN Reason: Pain, Moderate (4-6) Buspirone HCl (Buspirone 5 Mg Tablet) 10 mg PO BID [facility] Last Admin: 05/04/25 20:51 Dose: 10 mg Documented By: Escitalopram Oxalate (Escitalopram 10 Mg Tablet) 20 mg PO DAILY [facility] Gabapentin (Gabapentin 300 Mg Capsule) 300 mg PO DAILY [facility] Sodium Chloride (Normal Saline 0.9%) 1,000 mls @ 50 mls/hr IV CONT [facility] Last Admin: 05/04/25 18:19 Dose: 50 mls/hr Documented By: MALCOLM Metronidazole (Flagyl) 500 mg in 100 mls @ 100 mls/hr IV Q8H [facility] Last Infusion: 05/05/25 04:34 Dose: Infused Documented By: Admin: 05/05/25 02:40 Dose: 100 mls/hr Documented By: Infusion: 05/04/25 19:47 Dose: Infused Documented By: Admin: 05/04/25 18:19 Dose: 100 mls/hr Documented By: MALCOLM Ceftriaxone Sodium 1,000 mg/ (Sodium Chloride) 100 mls @ 200 mls/hr IV Q24H [facility] Last Infusion: 05/04/25 23:39 Dose: Infused Documented By: Admin: 05/04/25 20:05 Dose: 200 mls/hr Documented By: Dextrose (D10w) 100 mls @ 1,200 mls/hr IV PRN PRN PRN Reason: Hypoglycemia Insulin Glargine (Insulin Glargine 100 Unit/Ml 3ml Pen) 50 unit SUBCUT BEDTIME [facility] Last Admin: 05/04/25 20:58 Dose: 50 unit Documented By: Co-signed By: YAN Insulin Glargine (Insulin Glargine 100 Unit/Ml 3ml Pen) 115 unit SUBCUT DAILY [facility] Insulin Human Lispro (Insulin Lispro 100 Unit/Ml 3ml Vial) 0 unit SUBCUT ACHS [facility]; Protocol Last Admin: 05/04/25 20:59 Dose: 7 unit Documented By: Co-signed By: YAN Losartan Potassium (Losartan 25 Mg Tablet) 25 mg PO DAILY [facility] Naloxone HCl (Naloxone 0.4 Mg/Ml Vial) 0.2 mg IV Q2MIN PRN PRN Reason: Opiate Reversal Ondansetron HCl (Ondansetron 4 Mg/2 Ml Inj) 4 mg IV Q8HR PRN PRN Reason: Nausea And Vomiting Pravastatin Sodium (Pravastatin 20 Mg Tablet) 40 mg PO BEDTIME [facility] Last Admin: 05/04/25 20:51 Dose: 40 mg Documented By: MS Discontinued Medications Piperacillin Sod/Tazobactam (Sod 4.5 gm/ Sodium Chloride) 100 mls @ 200 mls/hr IV NOW ONE Stop: 05/04/25 14:18 Last Infusion: 05/04/25 15:55 Dose: Infused Documented By: Admin: 05/04/25 15:11 Dose: 200 mls/hr Documented By: SE Sodium Chloride (Normal Saline 0.9%) 1,000 mls @ 1,000 mls/hr IV BOLUS STA Stop: 05/04/25 15:17 Last Infusion: 05/04/25 17:35 Dose: Infused Documented By: Admin: 05/04/25 15:08 Dose: 1,000 mls/hr Documented By: SE Vancomycin HCl/Dextrose (Vancomycin) 2,000 mg in 400 mls @ 200 mls/hr IV NOW ONE Stop: 05/04/25 17:59 Last Infusion: 05/04/25 18:03 Dose: Infused Documented By: Admin: 05/04/25 16:03 Dose: 200 mls/hr Documented By: MAL Non-Formulary Medication (Pioglitazone) 45 mg PO DAILY [facility] Medical Decision Making Lab Data 05/04/25 14:40 05/05/25 04:34 Labs: Lab Results 05/04/25 Range/Units 14:40 WBC 10.7 (4.5-11.0) X10^3/uL RBC 4.45 (4.0-5.2) X10^6/uL Hgb 13.1 (12.0-16.0) g/dL Hct 38.5 (36-46) % MCV 86.4 (80-100) fL MCH 29.3 (26-34) PG MCHC 33.9 (30-36) % RDW 14.1 (11.6-14.8) % Plt Count 358 (150-400) X10^3/uL Neut % (Auto) 76.0 H (50-75) % Lymph % (Auto) 13.9 L (25-40) % [place] % (Auto) 8.2 (3-14) % Eos % (Auto) 1.1 L (2-4) % Baso % (Auto) 0.8 (0-2) % Neut # (Auto) 8200 H (5192-4541) /uL Lymph # (Auto) 1500 (2026-1553) /uL [place] # (Auto) 900 (0-900) /uL Eos # (Auto) 100 (0-450) /uL Baso # (Auto) 100 (0-100) /uL PT 11.3 (9.4-12.5) SECONDS INR 1.0 (0.9-1.3) APTT 28 (25.1-36.5) SECONDS Sodium 135 L (137-145) mmol/L Potassium 3.8 (3.4-5.1) mmol/L Chloride 104 (98-107) mmol/L Carbon Dioxide 19 L (22-32) mmol/L BUN 21 H (7-17) mg/dL Creatinine 1.00 (0.52-1.04) mg/dL Estimated GFR > 60 (>60) mL/min BUN/Creatinine Ratio 21.0 (6-22) Glucose 254 H (70-99) mg/dL Lactate 2.3 H (0.7-2.1) mmol/L Calcium 9.6 (8.4-10.2) mg/dL Total Bilirubin 0.5 (0.2-1.3) mg/dL AST 27 (14-36) IU/L ALT 21 (<35) IU/L Alkaline Phosphatase 82 (38-126) U/L Total Protein 7.1 (6.3-8.2) g/dL Albumin 3.9 (3.5-5.0) g/dL Globulin 3.2 (1.7-4.1) g/dL Albumin/Globulin Ratio 1.2 (1.0-2.8) Lipase 57 (23-300) U/L Procalcitonin 0.080 (<0.5) ng/mL Imaging Data Chest x-ray: Radiologist's Impression: [address] [id number] XRay Report Signed Patient: Felicita Flores MR#: [id number] : 1955 Acct:[id number] Age/Sex: 70 / F Date of Service: 05/04/25 Loc: ED Accession Number: [id number] Procedure: XR chest 1V Ordering Provider: Sebastien Weber D.O. PROCEDURE: XR CHEST 1V INDICATIONS: suspected sepsis TECHNIQUE: One view of the chest was acquired. COMPARISON: [facility], CR, XR CHEST 1V, 06/21/2022, 7:48. FINDINGS: Surgical changes and devices: Gastric balloon surgery. Phi angle of 76???. Lungs and pleura: Lungs are clear. No pleural effusions or pneumothorax. Mediastinum: Mediastinal contours appear normal. Heart size is normal. Bones and chest wall: No suspicious bony lesions. Overlying soft tissues appear unremarkable. IMPRESSION: No acute cardiopulmonary abnormality is seen. Gastric balloon surgery. Phi angle measures 76???, abnormal, typically indicating slippage. Findings are stable from 2021. Referral back to the bariatric surgeon who placed the band should be considered. ECG Data Interpretation: NSR HR 100 WA 170 QRS [address]-t wave change No previous EKG to compare MDM Narrative Medical decision making narrative: All lab work, vital signs, nurse triage note, medication list, previous ER visits and all imaging studies reviewed. Patient has blood cultures lactic acid vancomycin and Zosyn given. WBC 10.7 sodium 135 BUN 21 creatinine 1.00 glucose 254 lactic acid 2.3 procalcitonin 0.08. Differential diagnosis MRSA cellulitis abscess failed outpatient therapy. Case discussed with who has graciously accepted patient for inpatient admission. Discharge Plan Departure Patient Disposition: Admitted As Inpatient Clinical Impression: Cellulitis Qualifiers: Site of cellulitis: trunk Site of cellulitis of trunk: chest wall Qualified Code(s): L03.313 - Cellulitis of chest wall Admit Date/Time: 05/04/25 15:55 Admit Provider: Douglas Beaver
--- NOTE | 2025-05-04 14:17 | DI.RAD.S_ITS ---
PROCEDURE: XR CHEST 1V INDICATIONS: suspected sepsis TECHNIQUE: One view of the chest was acquired. COMPARISON: [facility], CR, XR CHEST 1V, 06/21/2022, 7:48. FINDINGS: Surgical changes and devices: Gastric balloon surgery. Phi angle of 76???. Lungs and pleura: Lungs are clear. No pleural effusions or pneumothorax. Mediastinum: Mediastinal contours appear normal. Heart size is normal. Bones and chest wall: No suspicious bony lesions. Overlying soft tissues appear unremarkable. IMPRESSION: No acute cardiopulmonary abnormality is seen. Gastric balloon surgery. Phi angle measures 76???, abnormal, typically indicating slippage. Findings are stable from 2021. Referral back to the bariatric surgeon who placed the band should be considered. Dictated by: Wilson Mathis M.D. on 05/04/2025 at 15:42 Approved by: Wilson Mathis M.D. on 05/04/2025 at 15:43
--- NOTE | 2025-05-04 14:17 | EKG_ITS ---
[place] [address] [address] [place] [id number] Test Date: 2025-05-04 Pat Name: Felicita Flores Department: 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
[2025-05-04 14:51] LABS: Add Manual Diff / Slide Review NO; Hematocrit 38.5 % (36-46); Hemoglobin 13.1 g/dL (12.0-16.0); Lymphocytes Absolute Auto 1500 /uL (1100-4500); Mean Corpuscular HGB Conc 33.9 % (30-36); Mean Corpuscular Hemoglobin 29.3 PG (26-34); Mean Corpuscular Volume 86.4 fL (80-100); Platelet Count 358 X10^3/uL (150-400)
[2025-05-04 15:00] LABS: INR 1.0 (0.9-1.3); Prothrombin Time 11.3 SECONDS (9.4-12.5)
[2025-05-04 15:03] LABS: PTT Partial Thromboplastin Tim 28 SECONDS (25.1-36.5)
[2025-05-04] MEDS: SODIUM CHLORIDE 0.9% 1,000 ML 1000 ML IV (15:08)
[2025-05-04 15:10] LABS: Lactate (Lactic Acid) 2.3 mmol/L (0.7-2.1)
[2025-05-04 15:11] LABS: Alanine Aminotransferase 21 IU/L (<35); Albumin 3.9 g/dL (3.5-5.0); Albumin Globulin Ratio 1.2 (1.0-2.8); Alkaline Phosphatase 82 U/L (38-126); Blood Urea Nitrogen 21 mg/dL (7-17); Calcium 9.6 mg/dL (8.4-10.2); Carbon Dioxide 19 mmol/L (22-32); Chloride 104 mmol/L (98-107); Estimated Glomerular Filt Rate > 60 mL/min (>60); Globulin 3.2 g/dL (1.7-4.1); Glucose 254 mg/dL (70-99); HEMOLYSIS 17 (0-50); Lipase 57 U/L (23-300); Potassium 3.8 mmol/L (3.4-5.1); Sodium 135 mmol/L (137-145); Total Protein 7.1 g/dL (6.3-8.2)
[2025-05-04] MEDS: PIPERACILLIN/TAZO 4.5 GM in SODIUM CHLORIDE 0.9% 100 ML IV (15:11)
[2025-05-04 15:28] LABS: Procalcitonin 0.080 ng/mL (<0.5)
[2025-05-04] MEDS: VANCOMYCIN 2,000 MG/400 ML PIGGYBACK 200 MG IV (16:03)
[2025-05-04 16:21] LABS: Reflexed Lactate in 2 Hours Y
[2025-05-04 16:37] VITALS: BP 172/76; PULSE 87; RESP 16; O2SAT 96
[2025-05-04 17:04] VITALS: BMI 37.2
[2025-05-04 17:11] LABS: Lactate 2HR (Lactic Acid Rflx) 1.5 mmol/L (0.7-2.1)
[2025-05-04 17:28] VITALS: BP 160/70; PULSE 94; RESP 16; TEMP 35.9; O2SAT 96
--- NOTE | 2025-05-04 17:56 | PM.HP.1 ---
History of Present Illness History of Present Illness Date Patient Seen: 05/04/25 Chief complaint: Carbuncle of the chest Narrative: Chief complaint: Worsening carbuncle of the chest not responding to antibiotics History of present illness: 05/04: 70-year-old female been treated by her primary care physician for a infection of the chest at the base of the breast bone and has becoming more painful and spreading. It is a red swelling area with multiple pustules that are draining. She was placed on doxycycline which has not been very effective was brought to the emergency room for failed outpatient therapy. Patient is status post colostomy for colon cancer she has also had a nephrectomy for renal cancer and a deep resection for invasive melanoma. There are no signs of recurrence of any of these neoplasms. No findings on imaging or laboratory that are significant in the emergency room workup. Patient was given 1 dose of vancomycin and 1 dose of Zosyn For past medical surgical family and social histories please see the bottom of the note: Review of systems: No fever or chills No fatigue or malaise No chest pains palpitations shortness for breath No nausea vomiting diarrhea No urinary symptom No paresthesia or paresis Physical exam: No acute distress alert and oriented HEENT unremarkable Chest has a 5 cm carbuncle at the base of the sternum is clearly demarcated without flare with surrounding erythema there are multiple pustules Heart sounds distant no murmurs appreciated Lungs clear Colostomy is in good shape no surrounding erythema Extremities no cyanosis clubbing Alert oriented nonfocal neurologically For objective laboratory and imaging data please see the bottom of the note: Assessment and plan: Carbuncle of the chest wall appears to be involving the skin layer there may be anaerobic Gram-negative involvement due to the proximity to the colostomy Coverage with ceftriaxone for Gram-positive organisms with metronidazole for anaerobic and Gram-negative coverage Monitor progress daily If effective can deescalate to oral cefdinir and metronidazole Type 2 diabetes: Continue long-acting and short-acting insulin regimen as well as oral regimen DVT prophylaxis new CT Not indicated patient is ambulatory Code status: Full code blue 55 minutes were involved in the evaluation of this patient including [id number] evaluation direct physical examination review of medical records review of the objective laboratory and imaging findings and discussion with the emergency provider [facility] Medical History (Updated 05/04/25 @ 15:51 by Sebastien Weber DO) History of renal cell cancer History of colon cancer Social History household members: spouse Smoking Status: Never smoker alcohol intake: never Meds Home Medications and Allergies Home Medications ?Medication ?Instructions ?Recorded ?Confirmed ?Type escitalopram oxalate 20 mg tablet 20 mg PO DAILY 06/21/22 05/04/25 History pravastatin 40 mg tablet 40 mg PO BEDTIME 06/21/22 05/04/25 History buspirone 10 mg tablet 10 mg PO BID 02/21/25 05/04/25 History doxycycline hyclate 100 mg capsule 100 mg PO BID #20 caps 02/21/25 05/04/25 Rx gabapentin 300 mg capsule 300 mg PO DAILY 02/21/25 05/04/25 History losartan 25 mg tablet 25 mg PO DAILY 02/21/25 05/04/25 History Held on 05/04/25. Instructions: STOPPED FOR ANTIBIOTIC, BP WAS LOW pioglitazone 45 mg tablet 45 mg PO DAILY 02/21/25 05/04/25 History Humulin R U-500 See Rx Instructions .Route .COMPLEX 05/04/25 05/04/25 History Allergies Allergy/AdvReac Type Severity Reaction Status Date / Time Opioids - Morphine Analogues AdvReac Hallucinati Verified 05/04/25 14:08 ng Exam Vital Signs (past 8 hours): - 05/04/25 14:02 05/04/25 16:37 05/04/25 17:28 Temperature 98.1 F 96.6 F L Pulse Rate 98 H 87 94 H Respiratory Rate 14 16 16 Blood Pressure 148/96 H 172/76 H 160/70 H Pulse Oximetry 98 96 96 Oxygen Delivery Method Room Air Room Air Oxygen Delivery Method Room Air Objective Labs 05/04/25 14:40 05/04/25 14:40 Labs: Laboratory Results - last 24 hr 05/04/25 05/04/25 14:40 16:50 WBC 10.7 RBC 4.45 Hgb 13.1 Hct 38.5 MCV 86.4 MCH 29.3 MCHC 33.9 RDW 14.1 Plt Count 358 Neut % (Auto) 76.0 H Lymph % (Auto) 13.9 L [place] % (Auto) 8.2 Eos % (Auto) 1.1 L Baso % (Auto) 0.8 Neut # (Auto) 8200 H Lymph # (Auto) 1500 [place] # (Auto) 900 Eos # (Auto) 100 Baso # (Auto) 100 PT 11.3 INR 1.0 APTT 28 Sodium 135 L Potassium 3.8 Chloride 104 Carbon Dioxide 19 L BUN 21 H Creatinine 1.00 Estimated GFR > 60 BUN/Creatinine Ratio 21.0 Glucose 254 H Lactate 2.3 H 1.5 Calcium 9.6 Total Bilirubin 0.5 AST 27 ALT 21 Alkaline Phosphatase 82 Total Protein 7.1 Albumin 3.9 Globulin 3.2 Albumin/Globulin Ratio 1.2 Lipase 57 Procalcitonin 0.080 Assessment & Plan Time-Based Coding :: [TOTAL MINUTES] spent with patient and on the chart (including review of chart, obtaining history, exam, reviewing outside data, placing orders, documenting exam and treatment plan, and counseling patient) on [DATE]. Quality VTE Deep Vein Thrombosis/Pulmonary Embolism Present on Admission: No
[2025-05-04] MEDS: ACETAMINOPHEN 325 MG TABLET 650 MG PO (18:18)
[2025-05-04] MEDS: SODIUM CHLORIDE 0.9% 1,000 ML 50 ML IV (18:19)
[2025-05-04] MEDS: metroNIDAZOLE 500 MG/100 ML PIGGYBACK 100 MG IV (18:19)
[2025-05-04 19:00] VITALS: BP 159/69; PULSE 93; RESP 20; TEMP 36.3; O2SAT 97
[2025-05-04] MEDS: PRAVASTATIN 20 MG TABLET 40 MG PO (20:51)
[2025-05-04] MEDS: INSULIN GLARGINE 100 UNIT/ML 3ML PEN 50 UNIT SUBCUT (20:58)
[2025-05-04] MEDS: INSULIN LISPRO 100 UNIT/ML 3ML VIAL SUBCUT (20:59)
[2025-05-05] VITALS (7 sets, daily range): BP systolic 142–171; BP diastolic 60–76; PULSE 94–110; RESP 15–21; TEMP 36.1–37.2; O2SAT 92–96; BMI 37.2
--- NOTE | 2025-05-05 | DI.US.S_ITS ---
PROCEDURE: US SOFT TISSUE ABDOMEN INDICATIONS: Midline chest fluid collection TECHNIQUE: Real-time focused scanning was performed of the abdomen, with image documentation. COMPARISON: None. FINDINGS: Grayscale color Doppler images of the area of clinical concern were acquired in the midline chest between both breasts. There is an oval, heterogeneous complicated fluid collection measuring 4.9 x 2.4 x 4.7 cm in size. There is associated hyperemia. This collection appears to be at site of skin wound and clinically with visible purulent material. IMPRESSION: 4.9 x 2.4 x 4.7 cm superficial, subdermal fluid collection at site of patient's wound likely representing phlegmon/abscess. Dictated by: Ramiro Dillard M.D. on 05/05/2025 at 12:18 Approved by: Ramiro Dillard M.D. on 05/05/2025 at 12:20
[2025-05-05] MEDS: metroNIDAZOLE 500 MG/100 ML PIGGYBACK 100 MG IV ×3 (02:40→19:00)
[2025-05-05 05:02] LABS: Blood Urea Nitrogen 18 mg/dL (7-17); Calcium 9.0 mg/dL (8.4-10.2); Carbon Dioxide 21 mmol/L (22-32); Chloride 107 mmol/L (98-107); Estimated Glomerular Filt Rate > 60 mL/min (>60); Glucose 119 mg/dL (70-99); HEMOLYSIS < 15 (0-50); Potassium 3.5 mmol/L (3.4-5.1); Sodium 139 mmol/L (137-145)
[2025-05-05 05:03] LABS: Hemoglobin A1C% w Est Avg Glu 9.2 % (4.0-6.0)
--- NOTE | 2025-05-05 07:41 | P.PN_ITS ---
Subjective Subjective Interval history: Hospital course: 05/04: 70-year-old female been treated by her primary care physician for a infection of the chest at the base of the breast bone and has becoming more painful and spreading. It is a red swelling area with multiple pustules that are draining. She was placed on doxycycline which has not been very effective was brought to the emergency room for failed outpatient therapy. Patient is status post colostomy for colon cancer she has also had a nephrectomy for renal cancer and a deep resection for invasive melanoma. There are no signs of recurrence of any of these neoplasms. S: Her swollen in the chest is about the same. She would like to go home. She has no history of MRSA. This infection has been ongoing for about 2 weeks. Exam Vital Signs (past 8 hours): Oxygen Delivery Method Room Air Narrative Exam Narrative: NAD, alert and oriented. Fluent speech. Lungs are clear, normal rate and effort. Heart is regular, no murmur gallop or rub. Abdomen is soft, non distended. Extremities are free of edema. He was an area of swollen and probable fluctuance in the mid sternal area which measures about 4 x 4 cm. Objective Labs 05/04/25 14:40 05/05/25 04:34 Labs: Laboratory Results - last 24 hr 05/04/25 05/04/25 05/04/25 14:40 16:50 20:27 WBC 10.7 RBC 4.45 Hgb 13.1 Hct 38.5 MCV 86.4 MCH 29.3 MCHC 33.9 RDW 14.1 Plt Count 358 Neut % (Auto) 76.0 H Lymph % (Auto) 13.9 L [place] % (Auto) 8.2 Eos % (Auto) 1.1 L Baso % (Auto) 0.8 Neut # (Auto) 8200 H Lymph # (Auto) 1500 [place] # (Auto) 900 Eos # (Auto) 100 Baso # (Auto) 100 PT 11.3 INR 1.0 APTT 28 Sodium 135 L Potassium 3.8 Chloride 104 Carbon Dioxide 19 L BUN 21 H Creatinine 1.00 Estimated GFR > 60 BUN/Creatinine Ratio 21.0 Glucose 254 H POC Whole Bld Glucose 401 H Hemoglobin A1c Lactate 2.3 H 1.5 Calcium 9.6 Total Bilirubin 0.5 AST 27 ALT 21 Alkaline Phosphatase 82 Total Protein 7.1 Albumin 3.9 Globulin 3.2 Albumin/Globulin Ratio 1.2 Lipase 57 Procalcitonin 0.080 05/05/25 04:34 WBC RBC Hgb Hct MCV MCH MCHC RDW Plt Count Neut % (Auto) Lymph % (Auto) [place] % (Auto) Eos % (Auto) Baso % (Auto) Neut # (Auto) Lymph # (Auto) [place] # (Auto) Eos # (Auto) Baso # (Auto) PT INR APTT Sodium 139 Potassium 3.5 Chloride 107 Carbon Dioxide 21 L BUN 18 H Creatinine 0.99 Estimated GFR > 60 BUN/Creatinine Ratio 18.2 Glucose 119 H D POC Whole Bld Glucose Hemoglobin A1c 9.2 H Lactate Calcium 9.0 Total Bilirubin AST ALT Alkaline Phosphatase Total Protein Albumin Globulin Albumin/Globulin Ratio Lipase Procalcitonin [facility] Medical History History of renal cell cancer History of colon cancer Social History household members: spouse Smoking Status: Never smoker alcohol intake: never Assessment & Plan Assessment & Plan narrative: Carbuncle of the chest wall appears to be involving the skin layer there may be anaerobic Gram-negative involvement due to the proximity to the colostomy * Coverage with ceftriaxone for Gram-positive organisms with metronidazole for anaerobic and Gram-negative coverage * Monitor progress daily * If effective can deescalate to oral cefdinir and metronidazole Type 2 diabetes: * Continue long-acting and short-acting insulin regimen as well as oral regimen PLAN: -continue IV antibiotics. -ultrasound to rule out abscess. -surgical consult for incision and drainage if needed. -Nares MRSA screen DVT prophylaxis new CT * Not indicated patient is ambulatory Code status: * Full code blue Time-Based Coding :: [TOTAL MINUTES] spent with patient and on the chart (including review of chart, obtaining history, exam, reviewing outside data, placing orders, documenting exam and treatment plan, and counseling patient) on [DATE]. Quality VTE Deep Vein Thrombosis/Pulmonary Embolism Present on Admission: No
[2025-05-05] MEDS: ESCITALOPRAM 10 MG TABLET 20 MG PO (08:55)
[2025-05-05] MEDS: INSULIN GLARGINE 100 UNIT/ML 3ML PEN 115 UNIT SUBCUT (09:01)
--- NOTE | 2025-05-05 09:54 | PC.NURSE ---
patient refused to check her blood sugar patient stated that nurses and doctors are okay that we can used her personal blood glucose. 135 blood sugar (from patient blood glucose machine). RN is aware
--- NOTE | 2025-05-05 11:58 | CM.DANOTE ---
Initial DCP Assessment Note Pt is a 70 yo female, resident of [place], presents with worsening chest wall/skin cellulitis, possible abscess (?) admitted for IV abx and further work up. Patient post colostomy and nephrectomy due to renal cancer. PCP: Shahab Crane Payer: [facility] MCR Reviewed chart, pt discussed in multidisciplinary rounds this morning. Further work up today of the depth/severity of patient's skin infection. Met w/patient and sp; patient lives independently w/sp, manages her colostomy without assistance, no hx of HH. Patient and sp appreciative for the visit, deny needs from this SW. No barriers identified at this time to patient's safe discharge home w/family to assist; close outpatient f/u recommended. Social work team will plan to follow clinical course closely in case any DC needs or concerns arise. CATHERINE Lanza Discharge Planning/Care Management CM Discharge Assessment Start: 05/04/25 16:45 Freq: Status: Active Protocol: Document 05/05/25 11:56 KIMBERLYN (Rec: 05/05/25 11:58 KIMBERLYN [id number]) Discharge Planning Assessment Assigned Discharge CATHERINE Rai Equipment Scheduler DPOA/Assigned Shailesh Flores, spouse Designee Name Contact Information [phone] Advance Directives? No History Provided By Patient,Medical Record Prior Living House Arrangements Household Members spouse Type of Drives own vehicle transporation used prior to admit Independent with ADL Yes 's Is patient alert and Yes oriented? Comment Independent Discharge Plan Home Transportation Spouse Arrangement Referrals Initiated None needed
--- NOTE | 2025-05-05 12:26 | PC.NURSE ---
patient blood sugar 254 from her own blood glucose machine. RN is aware
[2025-05-05 13:16] LABS: MRSA (Nasal) PCR NOT DETECTED (Not Detect)
[2025-05-05] MEDS: SODIUM CHLORIDE 0.9% 1,000 ML 50 ML IV (17:53)
--- NOTE | 2025-05-05 18:43 | PC.NURSE ---
patient blood sugar 244 from patient personal glucose check. RN is aware
--- NOTE | 2025-05-05 19:27 | PC.NURSE ---
Patient refused finger sticks for accuchecks as she currently has a CGM in place. Explained to patient that it is against policy to use CGM for documentation of BG and sliding scale insulin. Patient still declined. MD aware. NO SSI insulin given. Per CGM this evening BG 244.
--- NOTE | 2025-05-05 20:22 | PC.NURSE ---
Pt went to the OR at 2013 for and I&d of her chest wound. blood sugar before procedure was 177.
--- NOTE | 2025-05-05 20:32 | PM.HP.IH.1 ---
History of Present Illness History of Present Illness Date Patient Seen: 05/05/25 Time Patient Seen: 08:30 Date of Onset of Symptoms: 04/21/25 Chief complaint: Carbuncle of the chest Narrative: Patient is a 70-year-old white female seen inpatient for consultation on a sternal abscess which measures 5 x 6 cm with bend they are approximately 2 weeks. Patient denies any fever chills night sweats eyes any vertigo or syncope patient has been treated with oral antibiotics but is not getting any better was admitted for definitive care. I was asked to see the patient for surgical evaluation. Patient's most recent laboratory shows WBC of 10.7 hemoglobin 13.1 hematocrit is 38.5 platelets are 358,000 PT is 11.3 PTT was 28 sodium is 139 potassium 3.5 chloride 107 bicarb is 21 BUN of 18 creatinine 0.99 random blood sugar is 119. Allergies: Opioids Medications see med list: Patient is on doxycycline Past medical history: Corrective lenses, hyperlipidemia, obesity, insulin-dependent diabetes mellitus with neuropathy, history of colorectal cancer treated with abdominal perineal resection chemo and radiation therapy in 2013, history of left renal cancer in 2011, history of left arm melanoma in 2014. Patient denies any other heart lungs digestive musculoskeletal neurological seizure disorder psychiatric problems risks of Infectious diseases HIV or AIDS. Past surgical history: Tonsils and adenoids, cholecystectomy, left nephrectomy in 2011, gastric balloon, abdominal perineal resection with permanent colostomy in 1999, left arm melanoma excision 2014 no chemo or immunotherapy, EGD colonoscopy last done years ago that was negative Social history: Denies any tobacco alcohol or recreational drug usage Vitals: Temperature is 97.7? pulse 94 respirations 16 BP is 156/61 SaO2 is 96%, 5 ft 3 210 lb. Head is normocephalic eyes PERRLA EOMI is intact nares are clear 7 midline oropharyngeal cavity is in moderate repair heart regular rate and rhythm without murmurs lungs diminished in the bases no rales rhonchi or wheezes noted moderate inspiratory and expiratory effort moderate chest wall motion noted abdomen is obese soft nondistended negative Nima's columns great turns Billings's McBurney's no masses or peritoneal signs musculoskeletal moderate muscle tone and strength is bilaterally no gross deficit elicited. Sternal areas noted to have a raised inflamed 5 x 6 cm abscess with a slightly necrotic center no drainage is noted at this time. Impression: Sternal abscess 5 x 6 cm x 2 weeks Insulin-dependent diabetes mellitus History of colorectal cancer status post abdominal perineal resection History of left arm melanoma status post resection no chemo or immunotherapy History of left nephrectomy for renal cell cancer no chemo Plan: Discussed with patient the findings need for incision drainage irrigation and packing procedure risks and complications were fully explained including risk for cardiopulmonary depression infection bleeding possible further abscesses patient understands and consents we will I and D as soon as possible to avoid the risk for sepsis and especially in a diabetic patient understands and consents all questions were answered patient's satisfaction. [facility] Medical History History of renal cell cancer History of colon cancer Social History household members: spouse Smoking Status: Never smoker alcohol intake: never Meds Home Medications and Allergies Home Medications ?Medication ?Instructions ?Recorded ?Confirmed ?Type escitalopram oxalate 20 mg tablet 20 mg PO DAILY 06/21/22 05/04/25 History pravastatin 40 mg tablet 40 mg PO BEDTIME 06/21/22 05/04/25 History buspirone 10 mg tablet 10 mg PO BID 02/21/25 05/04/25 History doxycycline hyclate 100 mg capsule 100 mg PO BID #20 caps 02/21/25 05/04/25 Rx gabapentin 300 mg capsule 300 mg PO DAILY 02/21/25 05/04/25 History losartan 25 mg tablet 25 mg PO DAILY 02/21/25 05/04/25 History Held on 05/04/25. Instructions: STOPPED FOR ANTIBIOTIC, BP WAS LOW pioglitazone 45 mg tablet 45 mg PO DAILY 02/21/25 05/04/25 History Humulin R U-500 See Rx Instructions .Route .COMPLEX 05/04/25 05/04/25 History Allergies Allergy/AdvReac Type Severity Reaction Status Date / Time Opioids - Morphine Analogues AdvReac Hallucinati Verified 05/04/25 14:08 ng Exam Vital Signs (past 8 hours): Oxygen Delivery Method Room Air Oxygen Flow Rate 0 Objective Labs 05/04/25 14:40 05/05/25 04:34 Labs: Laboratory Results - last 24 hr 05/04/25 05/05/25 05/05/25 20:27 04:34 12:00 Sodium 139 Potassium 3.5 Chloride 107 Carbon Dioxide 21 L BUN 18 H Creatinine 0.99 Estimated GFR > 60 BUN/Creatinine Ratio 18.2 Glucose 119 H D POC Whole Bld Glucose 401 H Hemoglobin A1c 9.2 H Calcium 9.0 Nasal Screen MRSA (PCR) Not detected 05/05/25 20:24 Sodium Potassium Chloride Carbon Dioxide BUN Creatinine Estimated GFR BUN/Creatinine Ratio Glucose POC Whole Bld Glucose 197 H D Hemoglobin A1c Calcium Nasal Screen MRSA (PCR) Assessment & Plan Time-Based Coding :: [TOTAL MINUTES] spent with patient and on the chart (including review of chart, obtaining history, exam, reviewing outside data, placing orders, documenting exam and treatment plan, and counseling patient) on [DATE]. Quality VTE Deep Vein Thrombosis/Pulmonary Embolism Present on Admission: No [facility] PROFEE Skin Toggler Document charge(s): Yes
[2025-05-05] MEDS: LACTATED RINGERS 1,000 ML 42 ML IV (20:37)
--- NOTE | 2025-05-05 21:08 | SUR.OPER ---
Supine on padded OR bed, head on pillow, arms secured on padded arm boards at <90 degrees abduction, legs uncrossed, safety belt at thigh, tape over blanket over lower legs.
[2025-05-05] MEDS: BUPIVACAINE 0.25% W/ EPI 30 ML VIAL INJ (21:32)
--- NOTE | 2025-05-05 21:34 | PM.OP.1 ---
Operative Date/Time/Diagnoses Date of procedure: 05/05/25 Time of procedure: 09:30 Pre-op diagnosis: Sternal abscess x2 weeks need for incision and drainage 5 x 6 cm Post-op diagnosis: same Procedure & Clinicians Procedure: Patient is a 70-year-old white female [place] [facility] [place] 5 [place] 6 cm abscess on the sternum which had been there for approximately 2 weeks. Discussed with patient need for incision and drainage debridement of the abscess to allow the antibiotics to do their job. Procedure risks and complications were fully explained including risk for cardiopulmonary depression infection bleeding and reoccurrence patient understood and consented. All questions were answered the patient's satisfaction. Patient had been NPO since 12 noon. The patient was taken to surgery suite administered a general inhalation endotracheal anesthetic patient was prepped and draped in usual sterile fashion with Betadine prior to this for Gram stain aerobic and anaerobic C&S was performed with the drainage. Time-out was performed procedure patient and surgeon all in the room were agreement. The most fluctuant area incision was made with electrocautery in a cruciate fashion large amount of tennis parched was extruded this was suctioned clear the patient then had pocket was explored no other findings were noted patient then underwent a 4 x 4 gentle debridement of the abscess cavity and then irrigated out with sterile saline and suctioned dry. Patient was liberally injected with Marcaine 0.25% with epi. Patient was again suctioned out the wound was packed with quarter-inch iodoform gauze. Covered with a bulky bandage and ABD and taped in place. Patient tolerated procedure well without any complication patient's urine recovery room in satisfactory condition. Patient will be admitted back to inpatient we will continue with the IV antibiotics adjusted to the culture and sensitivity. All questions were answered the patient's satisfaction we will follow patient while in the hospital. Same procedure(s) as scheduled: Yes (Approximately 50 cc of tannish pus) Indications: Sternal abscess 5 x 6 cm Surgeon: Abe Barroso Click Yes if Unassisted: Yes Anesthesia Type: General Operative Notes Findings: 5 x 6 cm abscess approximately 50 cc of pus Applied: none Estimated Blood Loss (mL): 25 Complications: none Post-operative Condition: stable Disposition: Acute Care
[2025-05-05] MEDS: ACETAMINOPHEN 325 MG TABLET 650 MG PO (21:35)
[2025-05-05] MEDS: LACTATED RINGERS 1,000 ML 100 ML IV (23:59)
[2025-05-06 00:30] VITALS: BP 154/62; PULSE 102; RESP 16; O2SAT 93
[2025-05-06] MEDS: VANCOMYCIN 1,500 MG/300 ML PIGGYBACK 150 MG IV (01:04)
[2025-05-06 01:30] VITALS: BP 145/62; PULSE 90; RESP 16; O2SAT 92
[2025-05-06 03:00] VITALS: BP 150/70; PULSE 92; RESP 16; TEMP 36.6; O2SAT 94
[2025-05-06] MEDS: metroNIDAZOLE 500 MG/100 ML PIGGYBACK 100 MG IV ×3 (03:33→20:11)
[2025-05-06 05:32] LABS: Add Manual Diff / Slide Review NO; Hematocrit 33.0 % (36-46); Hemoglobin 11.3 g/dL (12.0-16.0); Lymphocytes Absolute Auto 1900 /uL (1100-4500); Mean Corpuscular HGB Conc 34.3 % (30-36); Mean Corpuscular Hemoglobin 29.7 PG (26-34); Mean Corpuscular Volume 86.4 fL (80-100); Platelet Count 307 X10^3/uL (150-400)
[2025-05-06 05:38] LABS: Alanine Aminotransferase 13 IU/L (<35); Albumin 3.1 g/dL (3.5-5.0); Albumin Globulin Ratio 1.1 (1.0-2.8); Alkaline Phosphatase 68 U/L (38-126); Blood Urea Nitrogen 14 mg/dL (7-17); Calcium 8.9 mg/dL (8.4-10.2); Carbon Dioxide 22 mmol/L (22-32); Chloride 109 mmol/L (98-107); Estimated Glomerular Filt Rate > 60 mL/min (>60); Globulin 2.9 g/dL (1.7-4.1); Glucose 131 mg/dL (70-99); HEMOLYSIS < 15 (0-50); Potassium 3.4 mmol/L (3.4-5.1); Sodium 139 mmol/L (137-145); Total Protein 6.0 g/dL (6.3-8.2)
--- NOTE | 2025-05-06 08:29 | PM.PN.1 ---
Subjective Subjective Interval history: S: She was doing well after her incision and drainage. She had a significant chest wall abscess which clinically is consistent with staph aureus. No fevers overnight. Exam Vital Signs (past 8 hours): - 05/06/25 00:30 05/06/25 01:30 05/06/25 03:00 Temperature 97.8 F Pulse Rate 102 H 90 92 H Respiratory Rate 16 16 16 Blood Pressure 154/62 H 145/62 H 150/70 H Pulse Oximetry 93 92 94 Oxygen Flow Rate 0 0 0 Oxygen Delivery Method Room Air Oxygen Flow Rate 0 Narrative Exam Narrative: NAD, alert and oriented. Fluent speech. Lungs are clear, normal rate and effort. Heart is regular, no murmur gallop or rub. Abdomen is soft, non distended. Extremities are free of edema. Dressing on sternum, the wound was packed by General surgery last night. Objective Labs 05/06/25 05:03 05/06/25 05:03 Labs: Laboratory Results - last 24 hr 05/05/25 05/05/25 05/05/25 12:00 20:24 22:06 WBC RBC Hgb Hct MCV MCH MCHC RDW Plt Count Neut % (Auto) Lymph % (Auto) [place] % (Auto) Eos % (Auto) Baso % (Auto) Neut # (Auto) Lymph # (Auto) [place] # (Auto) Eos # (Auto) Baso # (Auto) Sodium Potassium Chloride Carbon Dioxide BUN Creatinine Estimated GFR BUN/Creatinine Ratio Glucose POC Whole Bld Glucose 197 H D 174 H Calcium Total Bilirubin AST ALT Alkaline Phosphatase Total Protein Albumin Globulin Albumin/Globulin Ratio Nasal Screen MRSA (PCR) Not detected 05/06/25 05:03 WBC 8.0 RBC 3.82 L Hgb 11.3 L Hct 33.0 L MCV 86.4 MCH 29.7 MCHC 34.3 RDW 14.5 Plt Count 307 Neut % (Auto) 64.1 Lymph % (Auto) 23.1 L [place] % (Auto) 10.0 Eos % (Auto) 2.0 Baso % (Auto) 0.8 Neut # (Auto) 5100 Lymph # (Auto) 1900 [place] # (Auto) 800 Eos # (Auto) 200 Baso # (Auto) 100 Sodium 139 Potassium 3.4 Chloride 109 H Carbon Dioxide 22 BUN 14 Creatinine 0.88 Estimated GFR > 60 BUN/Creatinine Ratio 15.9 Glucose 131 H POC Whole Bld Glucose Calcium 8.9 Total Bilirubin 0.3 AST 25 ALT 13 Alkaline Phosphatase 68 Total Protein 6.0 L Albumin 3.1 L Globulin 2.9 Albumin/Globulin Ratio 1.1 Nasal Screen MRSA (PCR) [facility] Medical History History of renal cell cancer History of colon cancer Social History household members: spouse Smoking Status: Never smoker alcohol intake: never Assessment & Plan Assessment & Plan narrative: 1. Abscess of the chest wall appears to be involving the skin layer there may be anaerobic Gram-negative involvement due to the proximity to the colostomy Coverage with ceftriaxone for Gram-positive organisms with metronidazole for anaerobic and Gram-negative coverage Monitor progress daily If effective can deescalate to oral cefdinir and metronidazoleType 2 diabetes: Continue long-acting and short-acting insulin regimen as well as oral regimen 2. DM2, active. 3. Obesity class 2, stable. PLAN: -continue IV antibiotics. -follow cultures for final selection of oral antibiotics. -she will require another midnight in the hospital for IV antibiotics. -her diabetes increases her risk of adverse outcomes of infection given her general immunosuppressed state. LARRY: 05/07. DVT prophylaxis new CT Not indicated patient is ambulatoryCode status: Full code blue Time-Based Coding :: [TOTAL MINUTES] spent with patient and on the chart (including review of chart, obtaining history, exam, reviewing outside data, placing orders, documenting exam and treatment plan, and counseling patient) on [DATE]. Quality VTE Deep Vein Thrombosis/Pulmonary Embolism Present on Admission: No
[2025-05-06] MEDS: ENOXAPARIN 40 MG/0.4 ML SYRINGE SUBCUT (09:19)
[2025-05-06] MEDS: ESCITALOPRAM 10 MG TABLET 20 MG PO (09:20)
[2025-05-06 09:21] VITALS: BP 169/83
[2025-05-06] MEDS: LOSARTAN 25 MG TABLET PO (09:21)
[2025-05-06] MEDS: GABAPENTIN 300 MG CAPSULE PO (09:21)
[2025-05-06] MEDS: POTASSIUM CHLORIDE 20 MEQ TAB 40 MEQ PO (09:28)
[2025-05-06] MEDS: VANCOMYCIN 1,250 MG/250 ML PIGGYBACK 250 MG IV (10:29)
--- NOTE | 2025-05-06 10:57 | P.PN_ITS ---
Subjective Subjective Date Patient Seen: 05/06/25 Time Patient Seen: 11:00 Interval history: Patient is a 70-year-old white female resting comfortably in bed postop day 1. Incision and drainage of a sternal abscess approximately 5 x 6 cm. Patient states she is feeling a little bit better. Patient's Gram stain is still pending cultures are pending. Morning laboratory shows WBC of 8.0 hemoglobin 11.3 hematocrit is 33.0 platelets are 307,000 sodium is 139 potassium 3.4 chloride 109 bicarb is 22 BUN of 14 creatinine 0.88 random blood sugar is 131 normal LFTs. Vitals: Temperature is 97.8? pulse 92 respirations 16 BP is 169/83 SaO2 is 94%. Heart regular rate and rhythm without murmurs lungs are clear to auscultation no rales rhonchi or wheezes noted. Bandage was removed moderate old blood is noted on the bandage the redness is decreased all iodoform was removed covered with a bulky bandage. Impression: Postop day 1. Incision and drainage of a 5 x 6 cm sternal abscess Insulin-dependent diabetes mellitus Sepsis protocol Plan: Patient has iodoform was removed we will do b.i.d. irrigations and dressing change will adjust antibiotics according to the culture and sensitivity will follow. All questions were answered to patient and 's satisfaction. Exam Vital Signs (past 8 hours): - 05/06/25 03:00 05/06/25 09:21 Temperature 97.8 F Pulse Rate 92 H Respiratory Rate 16 Blood Pressure 150/70 H 169/83 H Pulse Oximetry 94 Oxygen Flow Rate 0 Oxygen Delivery Method Room Air Oxygen Flow Rate 0 Objective Labs 05/06/25 05:03 05/06/25 05:03 Labs: Laboratory Results - last 24 hr 05/05/25 05/05/25 05/05/25 12:00 20:24 22:06 WBC RBC Hgb Hct MCV MCH MCHC RDW Plt Count Neut % (Auto) Lymph % (Auto) [place] % (Auto) Eos % (Auto) Baso % (Auto) Neut # (Auto) Lymph # (Auto) [place] # (Auto) Eos # (Auto) Baso # (Auto) Sodium Potassium Chloride Carbon Dioxide BUN Creatinine Estimated GFR BUN/Creatinine Ratio Glucose POC Whole Bld Glucose 197 H D 174 H Calcium Total Bilirubin AST ALT Alkaline Phosphatase Total Protein Albumin Globulin Albumin/Globulin Ratio Nasal Screen MRSA (PCR) Not detected 05/06/25 05:03 WBC 8.0 RBC 3.82 L Hgb 11.3 L Hct 33.0 L MCV 86.4 MCH 29.7 MCHC 34.3 RDW 14.5 Plt Count 307 Neut % (Auto) 64.1 Lymph % (Auto) 23.1 L [place] % (Auto) 10.0 Eos % (Auto) 2.0 Baso % (Auto) 0.8 Neut # (Auto) 5100 Lymph # (Auto) 1900 [place] # (Auto) 800 Eos # (Auto) 200 Baso # (Auto) 100 Sodium 139 Potassium 3.4 Chloride 109 H Carbon Dioxide 22 BUN 14 Creatinine 0.88 Estimated GFR > 60 BUN/Creatinine Ratio 15.9 Glucose 131 H POC Whole Bld Glucose Calcium 8.9 Total Bilirubin 0.3 AST 25 ALT 13 Alkaline Phosphatase 68 Total Protein 6.0 L Albumin 3.1 L Globulin 2.9 Albumin/Globulin Ratio 1.1 Nasal Screen MRSA (PCR) [facility] Medical History History of renal cell cancer History of colon cancer Social History household members: spouse Smoking Status: Never smoker alcohol intake: never Assessment & Plan Time-Based Coding :: [TOTAL MINUTES] spent with patient and on the chart (including review of chart, obtaining history, exam, reviewing outside data, placing orders, documenting exam and treatment plan, and counseling patient) on [DATE]. Quality VTE Deep Vein Thrombosis/Pulmonary Embolism Present on Admission: No [facility] PROFEE Pediatric Anesthesiologist Document charge(s): Yes
[2025-05-06] MEDS: LACTATED RINGERS 1,000 ML 100 ML IV (12:02)
[2025-05-06 19:00] VITALS: BP 159/60; PULSE 89; RESP 16; TEMP 36.1; O2SAT 96
[2025-05-06] MEDS: INSULIN GLARGINE 100 UNIT/ML 3ML PEN 50 UNIT SUBCUT (21:22)
[2025-05-06] MEDS: INSULIN LISPRO 100 UNIT/ML 3ML VIAL SUBCUT (21:25)
[2025-05-06] MEDS: PRAVASTATIN 20 MG TABLET 40 MG PO (21:27)
--- NOTE | 2025-05-07 05:10 | INF.NOTE ---
Assumed care of patient at 0030 on 05/07/25. pt resting. At 0330 this nurse when in to give pt her IV antibiotic, this nurse noticed that the pt right arm which is where her iv is is hard to touch a edematous. Pt denies pain and has good radial pulse to her right hand, no numbness. Dr. Call aware. Pt is a hard iv start and also declining having an iv line. aware of this.
[2025-05-07 05:41] LABS: Hematocrit 33.4 % (36-46); Hemoglobin 11.3 g/dL (12.0-16.0); Mean Corpuscular HGB Conc 34.0 % (30-36); Mean Corpuscular Hemoglobin 29.3 PG (26-34); Mean Corpuscular Volume 86.3 fL (80-100); Platelet Count 300 X10^3/uL (150-400)
[2025-05-07 06:01] LABS: Alanine Aminotransferase 15 IU/L (<35); Albumin 3.2 g/dL (3.5-5.0); Albumin Globulin Ratio 1.1 (1.0-2.8); Alkaline Phosphatase 74 U/L (38-126); Blood Urea Nitrogen 9 mg/dL (7-17); Calcium 8.9 mg/dL (8.4-10.2); Carbon Dioxide 23 mmol/L (22-32); Chloride 108 mmol/L (98-107); Estimated Glomerular Filt Rate > 60 mL/min (>60); Globulin 2.9 g/dL (1.7-4.1); Glucose 240 mg/dL (70-99); HEMOLYSIS < 15 (0-50); Potassium 3.7 mmol/L (3.4-5.1); Sodium 139 mmol/L (137-145); Total Protein 6.1 g/dL (6.3-8.2)
[2025-05-07] MEDS: INSULIN GLARGINE 100 UNIT/ML 3ML PEN 115 UNIT SUBCUT (08:34)
[2025-05-07] MEDS: INSULIN LISPRO 100 UNIT/ML 3ML VIAL SUBCUT (08:36)
[2025-05-07] MEDS: ESCITALOPRAM 10 MG TABLET 20 MG PO (08:44)
[2025-05-07] MEDS: ENOXAPARIN 40 MG/0.4 ML SYRINGE SUBCUT (08:48)
--- NOTE | 2025-05-07 11:11 | P.PN_ITS ---
Subjective Subjective Date Patient Seen: 05/07/25 Time Patient Seen: 10:00 Interval history: Patient is a 70-year-old white female postop day 2. Incision and drainage of a 5 x 6 cm sternal abscess. Patient states she is doing much better decreased discomfort minimal drainage possibly desiring to go home today. The patient's Gram stain showed WBCs only no bacteria blood cultures are negative x2 days. WBC is 6.1 hemoglobin 11.3 hematocrit is 33.4 platelets are 300,000 sodium is 139 potassium 3.7 chloride 108 bicarb is 23 BUN of 9 creatinine 0.76 random blood sugar is 240. Vitals: Temperature is 97.0? pulse is 89 respirations 16 BP is 159/60 SaO2 is 96% on room air Heart regular rate and rhythm without murmurs lungs are clear to auscultation patient has abscess site is drastically reduced in size redness and swelling is drastically reduced small opening is still noted but minimal drainage. Minimal pain to palpation. Impression: Postop day 2. Incision and drainage of a 5 x 6 cm sternal abscess Insulin-dependent diabetes mellitus Plan: Discussed with patient and hospitalist the findings patient may be discharged as per hospitalist discretion. Patient was discussed wound care that being a diabetic she is essentially considered immune compromised she needs to watch these and keep small wounds from getting the size. She is washing daily with soap and water and peroxide triple antibiotic ointment twice a day watch for any further signs of infection or inflammation return in the emergency room if any problems questions or concerns. Recommend patient be on oral antibiotics for 2 weeks patient desires no narcotics. All questions were answered to patient and satisfaction. May discharge as per hospitalist. Exam Vital Signs (past 8 hours): Oxygen Delivery Method Room Air Oxygen Flow Rate 0 Objective Labs 05/07/25 05:17 05/07/25 05:17 Labs: Laboratory Results - last 24 hr 05/07/25 05:17 WBC 6.1 RBC 3.87 L Hgb 11.3 L Hct 33.4 L MCV 86.3 MCH 29.3 MCHC 34.0 RDW 14.2 Plt Count 300 Sodium 139 Potassium 3.7 Chloride 108 H Carbon Dioxide 23 BUN 9 Creatinine 0.76 Estimated GFR > 60 BUN/Creatinine Ratio 11.8 Glucose 240 H D Calcium 8.9 Total Bilirubin 0.3 AST 25 ALT 15 Alkaline Phosphatase 74 Total Protein 6.1 L Albumin 3.2 L Globulin 2.9 Albumin/Globulin Ratio 1.1 PFSH Medical History History of renal cell cancer History of colon cancer Social History household members: spouse Smoking Status: Never smoker alcohol intake: never Assessment & Plan Time-Based Coding :: [TOTAL MINUTES] spent with patient and on the chart (including review of chart, obtaining history, exam, reviewing outside data, placing orders, documenting exam and treatment plan, and counseling patient) on [DATE]. Quality VTE Deep Vein Thrombosis/Pulmonary Embolism Present on Admission: No [facility] PROF[facility] Early Intervention Specialist Document charge(s): Yes
--- NOTE | 2025-05-07 11:50 | CM.DPC ---
DCP Discharge Home Per MD and Surgeon, pt medically stable to discharge home today with spouse assist and outpt f/u. MD and Surgeon discussed wound care with pt and spouse since she has DM and higher risk for further infection and pt and spouse comfortable with the wound care cleaning and needs and do not currently feel they need outpt wound clinic or HH RN at this time. Spouse can provide transport home and pt has been ambulating the halls with him. Plan: patient to d/c home today via spouse POV and outpt f/u and no further SW needs at this time. CATHERINE Bryant
--- NOTE | 2025-05-07 14:22 | PM.DS.1 ---
History of Present Illness History of Present Illness Chief complaint: Carbuncle of the chest Narrative: From H&P: Patient is a 70-year-old white female seen inpatient for consultation on a sternal abscess which measures 5 x 6 cm with bend they are approximately 2 weeks. Patient denies any fever chills night sweats eyes any vertigo or syncope patient has been treated with oral antibiotics but is not getting any better was admitted for definitive care. I was asked to see the patient for surgical evaluation. Patient's most recent laboratory shows WBC of 10.7 hemoglobin 13.1 hematocrit is 38.5 platelets are 358,000 PT is 11.3 PTT was 28 sodium is 139 potassium 3.5 chloride 107 bicarb is 21 BUN of 18 creatinine 0.99 random blood sugar is 119. Discharge Providers Provider Date of admission: 05/04/25 15:55 Discharge Date: 05/07/25 Primary care physician: Shahab Crane MD Consults: 05/05/25 21:17 Consult to Discharge Planning Routine Comment: Discharge provider: Hay Mitchell MD Summary Hospital Course Discharge Diagnosis: 1. Abscess of the chest wall appears to be involving the skin layer there may be anaerobic Gram-negative involvement due to the proximity to the colostomy 2. Type 2 diabetes: 3. Obesity class 2, stable. Hospital Course: She was admitted and treated with empiric antibiotics. An ultrasound on the indicate evidence of a fluid collection. Surgery was consulted and she underwent incision and drainage on the evening of May 05. About 50 mL of fluid was obtained. This was positive for WBCs but cultures remained negative. She was treated with IV antibiotics for an additional 2 days. Her wound improved and she to be stable for discharge her on May 07 surgeon, Dr. Jasmyn boyd, on the day of discharge. She will have 14 additional days of doxycycline and follow up with her PCP under 2 weeks. Status at Discharge Cognitive/behavioral status at discharge: oriented Functional status at discharge: independent ambulation Overall status at discharge: patient is back to baseline Time Spent with Patient Time spent: Greater than 30 minutes Exam Vital Signs (past 8 hours): Oxygen Delivery Method Room Air Oxygen Flow Rate 0 Narrative Exam Narrative: NAD, alert and oriented. Fluent speech. Lungs are clear, normal rate and effort. Heart is regular, no murmur gallop or rub. Abdomen is soft, non distended. Extremities are free of edema. Chest wound is improving. It was open and there was no drainage. The surrounding erythema is also improved. Objective Imaging Multiple studies:: Radiologist's impression: Chest x-ray: No acute cardiopulmonary abnormality is seen. Gastric balloon surgery. Phi angle measures 76???, abnormal, typically indicating slippage. Findings are stable from 2021. Referral back to the bariatric surgeon who placed the band should be considered. Sternal ultrasound: 4.9 x 2.4 x 4.7 cm superficial, subdermal fluid collection at site of patient's wound likely representing phlegmon/abscess. Labs 05/07/25 05:17 05/07/25 05:17 Labs: Laboratory Results - last 24 hr 05/07/25 05:17 WBC 6.1 RBC 3.87 L Hgb 11.3 L Hct 33.4 L MCV 86.3 MCH 29.3 MCHC 34.0 RDW 14.2 Plt Count 300 Sodium 139 Potassium 3.7 Chloride 108 H Carbon Dioxide 23 BUN 9 Creatinine 0.76 Estimated GFR > 60 BUN/Creatinine Ratio 11.8 Glucose 240 H D Calcium 8.9 Total Bilirubin 0.3 AST 25 ALT 15 Alkaline Phosphatase 74 Total Protein 6.1 L Albumin 3.2 L Globulin 2.9 Albumin/Globulin Ratio 1.1 [facility] Medical History History of renal cell cancer History of colon cancer Social History household members: spouse Smoking Status: Never smoker alcohol intake: never Discharge Assessment & Plan Assessment and Plan Assessment: 1. Abscess of the chest wall appears to be involving the skin layer there may be anaerobic Gram-negative involvement due to the proximity to the colostomy 2. Type 2 diabetes: Plan of Treatment: Stable for discharge on doxycycline 100 b.i.d. for 14 days. PCP within 1 week, follow up a sat for increased redness, pain, or discharge. Discharge Plan Discharge Plan Patient Disposition: Home Provider Discharge Comment: Stable for discharge home. Nursing Discharge Comment: comment from surgeon: washing daily with soap and water and peroxide triple antibiotic ointment twice a day watch for any further signs of infection or inflammation return in the emergency room if any problems questions or concerns. Discharge orders & Medications Prescriptions: Continued losartan 25 mg tablet 25 mg PO DAILY pioglitazone 45 mg tablet 45 mg PO DAILY buspirone 10 mg tablet 10 mg PO BID pravastatin 40 mg tablet 40 mg PO BEDTIME escitalopram oxalate 20 mg tablet 20 mg PO DAILY gabapentin 300 mg capsule 300 mg PO DAILY Humulin R U-500 See Rx Instructions .ROUTE .COMPLEX Rx Instructions: 145 units in am and 60 units hs doxycycline hyclate 100 mg capsule 100 mg PO BID Qty: 28 0RF Rx Instructions: take 7 - 10 days Follow up/Referrals: Shahab Crane MD [Primary Care Provider, Internal Medicine] Discharge Health Status Multidrug resistant organism: No MDRO Diet/Activity/Treatments Diet: Carb-consistent/Diabetic Activity: As tolerated. Skin/Wound/Dressing Care Report to your healthcare provider any signs of infection, such as:: chills, fever, night sweats, increased pain, unusual drainage and unusual redness Visit Report/Discharge Packet Instructions: DI for Incision and Drainage, Doxycycline (By mouth) Stand Alone Forms: Patient Portal/API Discharge Data Primary Care Provider: Shahab Crane Attending Provider: Douglas Beaver Admit Date/Time: 05/04/25 15:55 Quality VTE Deep Vein Thrombosis/Pulmonary Embolism Present on Admission: No
--- NOTE | 2025-05-07 16:26 | PC.NURSE ---
Patient is A&OX4, VSS, afebrile on RA. She is evaluated by hospitalist and surgeon at bedside today and they clear her medically for discharge home with on oral antibiotics. She verbalizes understanding of site care, cleansing wound apply triple antibiotic ointment topically. She acknowledges understanding to return to provider/ ED if site worsens, fever, chills. She is escorted via w/ch by RN to private vehicle with today at 1250pm this afternoon with all of her belongings.
== END 2025-05-07 12:50 | disposition home or self-care (01) | DRG 581 ==
LOC: ED 15:51 → AC 16:33
PROVIDERS: Hospitalist; Surgery; Admitting Provider Internal Medicine; Emergency Provider Family Medicine; PCP Internal Medicine; Referring Provider Family Medicine; Visit Provider Internal Medicine
PROC: 0JD60ZZ Extraction of Chest Subcutaneous Tissue and Fascia, Open Approach (ICD-10-PCS; principal; 2025-05-05 21:00)
DX: L02.213 Cutaneous abscess of chest wall (principal); E11.9 Type 2 diabetes mellitus without complications; E66.812 Obesity, class 2; B95.61 Methicillin susceptible Staphylococcus aureus infection as the cause of diseases classified elsewhere; Z93.3 Colostomy status; Z85.038 Personal history of other malignant neoplasm of large intestine; Z85.528 Personal history of other malignant neoplasm of kidney; Z85.820 Personal history of malignant melanoma of skin; Z90.5 Acquired absence of kidney; Z79.4 Long term (current) use of insulin; Z68.37 Body mass index [BMI] 37.0-37.9, adult
CPT/HCPCS: 36415; 71045; 76705; 80048; 80053; 82962; 83036; 83605; 83690; 84145; 85025; 85027; 85610; 85730; 87040; 87070; 87075; 87205; 87797; 93005; 96361; 96365; 96367; 99284; G0378; J0330; J0696; J1100; J1650; J1815; J2405; J2543; J2704; J3010; J3372